=== PATIENT | female | born 1950 | race Caucasian/White ===

== ENCOUNTER 2017-06-19 15:31 | Emergency (ER) | payer MEDICARE, MEDICAID ==
[~2017-06-19 15:31] MED LIST: AMBI10TA PO; ASPI81TA82 PO; BENZ1TAB PO; CHLO.12%30 SSP; CIPR500T4 PO; CITA20 PO; CLIN1CAP6 PO; DUONI INH; HALO10 PO; ISOS60TA PO; KCL20 PO; LORTA5 PO; NITR0.4S SL; QUET1TAB65 PO
[2017-06-19 15:40] VITALS: BP 114/83; PULSE 103; RESP 18; TEMP 98.3; O2SAT 98
--- NOTE | 2017-06-19 16:37 | PD ---
HPI Chief Complaint: Altered Mental Status Time Seen by Provider: 16:03 Travel History International Travel<30 days: No Contact w/Intl Traveler<30days: No Traveled to known affect area: No History of Present Illness HPI 67-year-old female presents to the emergency department with her daughter at bedside for evaluation of intermittent confusion that started on Friday according to the daughter. The patient's history of paranoid schizophrenia. Her daughter states that she lives nearby and will get her medications ready for her. However, her medications were in disarray today and it appears that she has not been taking them as prescribed. Her daughter states that she has had intermittent confusion since Friday night. The patient states that she tripped and fell twice yesterday going to the bathroom. She does report urinary frequency. The patient is adamant that she tripped and fell. She denies any syncope or dizziness. She denies hitting her head or any LOC. The patient denies any pain. No neck or back pain. No chest pain or abdominal pain. No nausea, vomiting, diarrhea. Patient does have ecchymosis to the right foot. Patient's daughter states that was not there last night, and apparently was injured in one of her falls. Her daughter states that she complains of pain with ambulation. The patient answers my questions appropriately. She is alert and oriented to person, place, time for me. She follows all commands appropriately. No exacerbating or alleviating factors. Moderate severity. Her daughter states the last time she had these symptoms, she was diagnosed with a urinary tract infection. PFSH Past Medical History Arthritis: Yes Asthma: No Blood Disorders: No Anxiety: Yes Depression: Yes Heart Rhythm Problems: No Cancer: No Cardiovascular Problems: Yes High Cholesterol: Yes Chemotherapy: No Chest Pain: Yes Congestive Heart Failure: No COPD: No Cerebrovascular Accident: No Diabetes: Yes (PT NONCOMPLIANT) Diminished Hearing: No Endocrine: No GERD: No Glaucoma: No Headaches: Yes Hepatitis: No Hiatal Hernia: No Hypertension: Yes Immune Disorder: No Kidney Stones: No Musculoskeletal: Yes Psychiatric: Yes (SCHIZOPHRENIA,PARANOIA) Respiratory: Yes Migraines: No Myocardial Infarction: No Radiation Therapy: No Renal Failure: No Schizophrenia: Yes (PARANOID) Seizures: No Sickle Cell Disease: No Sleep Apnea: No Thyroid Disease: No Ulcer: No Menopausal: Yes : 2 Para: 2 Miscarriage: 0 : 0 Past Surgical History Abdominal Surgery: No AICD: No Appendectomy: No Arteriovenous Shunt: No Cardiac Surgery: No Cholecystectomy: No Ear Surgery: No Endocrine Surgery: No Eye Surgery: No Genitourinary Surgery: No Gynecologic Surgery: No Insulin Pump: No Joint Replacement: No Oral Surgery: No Pacemaker: No Thoracic Surgery: No Other Surgery: Yes (CERVICAL WARTS REMOVED) Social History Alcohol Use: No (Denies) Tobacco Use: Yes (1/2 PPD) Substance Use: No Allergies-Medications (Allergen,Severity, Reaction): Coded Allergies: penicillin G (Unverified Allergy, Severe, 06/19/17) Per pt. *MDRO Multi-Drug Resistant Organism (Verified Adverse Reaction, Unknown, ) ESBL+ E. coli in urine 11/2014. Reported Meds & Prescriptions Reported Meds & Active Scripts Active Cipro (Ciprofloxacin HCl) 500 Mg Tab 500 Mg PO BID 5 Days [place] 5/325 (Hydrocodone/Acetaminophen 5/325) Acetaminophen 325/5 Hydrocodone Tab 1 Tab PO Q6H PRN Clindamycin Hcl (Clindamycin HCl) 300 Mg Cap 300 Mg PO Q8 PRN Kcl 20 Meq Tab (Potassium Chloride) 20 Meq Tabcr 40 Meq PO DAILY Chlorhexidine Gluconate 30 Ml Soln 15 Ml SSP TID 30 Days Resp: Albuterol/Ipratropium 2.5 Mg/0.5 Mg (Albuterol/Ipratropium) 1 Amp Nebu 1 Amp INH Q6-RT PRN Seroquel (Quetiapine Fumarate) 200 Mg Tab 400 Mg PO BID Reported Nitrostat (Nitroglycerin) 0.4 Mg Subl 0.4 Mg SL PRN 1 TAB SL EVERY 5 MINS X 3 PRN CHEST PAIN Aspir-81 (Aspirin) 81 Mg Tab 81 Mg PO DAILY Celexa 20 Mg Tab (Citalopram Hydrobromide) 20 Mg Tab 20 Mg PO DAILY Isosorbide Mononitrate Er (Isosorbide Mononitrate) 60 Mg Tab 60 Mg PO DAILY Ambien (Zolpidem Tartrate) 10 Mg Tab 10 Mg PO HS Cogentin (Benztropine Mesylate) 2 Mg Tab 2 Mg PO BID Haldol (Haloperidol) 10 Mg Tab 10 Mg PO BID Review of Systems Except as stated in HPI: all other systems reviewed are Neg Physical Exam Narrative GENERAL: Well-nourished, well-developed female patient, afebrile. Patient is alert and oriented to person, place, time. SKIN: Focused skin assessment warm/dry. Ecchymosis noted to right dorsal foot. HEAD: Normocephalic. Atraumatic. ENT: Mucosa pink and moist. No erythema or exudates. No uvular edema. No uvular , palatal, or tonsillar deviation. Airway patent. Nasal turbinates appear normal without nasal blood, purulent drainage or septal hematoma. Bilateral tympanic membranes are clear without erythema or perforation. EYES: No scleral icterus. No injection or drainage. PERRLA. EOM intact. NECK: Supple, trachea midline. No JVD or lymphadenopathy. CARDIOVASCULAR: Regular rate and rhythm without murmurs, gallops, or rubs. Bilateral radial and pedal pulses are 2+. RESPIRATORY: Breath sounds equal bilaterally. No accessory muscle use. Lungs sounds are clear to auscultation. GASTROINTESTINAL: Abdomen soft, non-tender, nondistended. No abdominal tenderness to palpation. MUSCULOSKELETAL: No cyanosis, or edema. Bilateral upper and lower extremity strength 5/5. All extremities are neurovascularly intact. BACK: Nontender without obvious deformity. No CVA tenderness. No midline spinal tenderness. She has full range of motion of cervical spine without pain or stiffness. NEUROLOGICAL: Awake and alert. Cranial nerves II through XII intact. Motor and sensory grossly within normal limits. Five out of 5 muscle strength in all muscle groups. Normal speech. Finger to nose is normal bilaterally. Heel-to- barnes is normal bilaterally. Data Data Last Documented VS Vital Signs Date Time Temp Pulse Resp B/P (MAP) Pulse Ox O2 Delivery O2 Flow Rate FiO2 06/19/17 17:24 96 Room Air 06/19/17 15:44 20 06/19/17 15:40 98.3 103 114/83 (93) Orders Orders Electrocardiogram (06/19/17 16:34) Ammonia (06/19/17 16:34) Complete Blood Count With Diff (06/19/17 16:34) Comprehensive Metabolic Panel (06/19/17 16:34) Creatine Kinase (Cpk) (06/19/17 16:34) Prothrombin Time / Inr (Pt) (06/19/17 16:34) Act Partial Throm Time (Ptt) (06/19/17 16:34) Troponin I (06/19/17 16:34) Thyroid Stimulating Hormone (06/19/17 16:34) Urinalysis - C+S If Indicated (06/19/17 16:34) Ct Brain W/O Iv Contrast(Rout) (06/19/17 16:34) Blood Glucose (06/19/17 16:34) Ecg Monitoring (06/19/17 16:34) Iv Access Insert/Monitor (06/19/17 16:34) Oximetry (06/19/17 16:34) Sodium Chloride 0.9% Flush (Ns Flush) (06/19/17 16:45) Drug Screen, Random Urine (06/19/17 16:34) Alcohol (Ethanol) (06/19/17 16:34) Tylenol (Acetaminophen) (06/19/17 16:34) Salicylates (Aspirin) (06/19/17 16:34) Foot, Complete (Vua3ogd) (06/19/17 ) Urine Culture (06/19/17 17:00) CKMB (06/19/17 16:40) CKMB% (06/19/17 16:40) Ceftriaxone Inj (Rocephin Inj) (06/19/17 18:30) Ns (Bolus) Inj (06/19/17 18:30) Splint Or Brace Apply/Monitor (06/19/17 18:20) Labs Laboratory Tests Test 06/19/17 16:40 06/19/17 17:00 White Blood Count 12.4 TH/MM3 Red Blood Count 4.40 MIL/MM3 Hemoglobin 12.4 GM/DL Hematocrit 37.0 % Mean Corpuscular Volume 84.1 FL Mean Corpuscular Hemoglobin 28.1 PG Mean Corpuscular Hemoglobin Concent 33.4 % Red Cell Distribution Width 16.2 % Platelet Count 213 TH/MM3 Mean Platelet Volume 8.8 FL Neutrophils (%) (Auto) 58.8 % Lymphocytes (%) (Auto) 31.2 % Monocytes (%) (Auto) 7.5 % Eosinophils (%) (Auto) 2.0 % Basophils (%) (Auto) 0.5 % Neutrophils # (Auto) 7.3 TH/MM3 Lymphocytes # (Auto) 3.9 TH/MM3 Monocytes # (Auto) 0.9 TH/MM3 Eosinophils # (Auto) 0.2 TH/MM3 Basophils # (Auto) 0.1 TH/MM3 CBC Comment DIFF FINAL Differential Comment Prothrombin Time 11.4 SEC Prothromb Time International Ratio 1.1 RATIO Activated Partial Thromboplast Time 27.1 SEC Blood Urea Nitrogen 10 MG/DL Creatinine 0.70 MG/DL Random Glucose 110 MG/DL Total Protein 7.2 GM/DL Albumin 3.9 GM/DL Calcium Level 8.8 MG/DL Alkaline Phosphatase 74 U/L Aspartate Amino Transf (AST/SGOT) 24 U/L Alanine Aminotransferase (ALT/SGPT) 28 U/L Total Bilirubin 0.4 MG/DL Sodium Level 140 MEQ/L Potassium Level 3.6 MEQ/L Chloride Level 107 MEQ/L Carbon Dioxide Level 26.1 MEQ/L Anion Gap 7 MEQ/L Estimat Glomerular Filtration Rate 84 ML/MIN Ammonia 34 MCMOL/L Total Creatine Kinase 418 U/L Creatine Kinase MB 6.3 NG/ML Creatine Kinase MB % 1.5 % Troponin I LESS THAN 0.02 NG/ML Thyroid Stimulating Hormone 3rd Gen 0.617 uIU/ML Salicylates Level 5.7 MG/DL Acetaminophen Level LESS THAN 2.0 MCG/ML Ethyl Alcohol Level LESS THAN 3 MG/DL Urine Color YELLOW Urine Turbidity CLOUDY Urine pH 6.5 Urine Specific [place] 1.013 Urine Protein TRACE mg/dL Urine Glucose (UA) NEG mg/dL Urine Ketones NEG mg/dL Urine Occult Blood SMALL Urine Nitrite POS Urine Bilirubin NEG Urine Urobilinogen LESS THAN 2.0 MG/DL Urine Leukocyte Esterase LARGE Urine RBC 22 /hpf Urine WBC /hpf Urine WBC Clumps MANY Urine Squamous Epithelial Cells 19 /hpf Urine Bacteria MANY /hpf Urine Mucus FEW /lpf Microscopic Urinalysis Comment CATH-CULTURE IND [facility] Medical Decision Making Medical Screen Exam Complete: Yes Emergency Medical Condition: Yes Medical Record Reviewed: Yes Interpretation(s) Last Impressions Head CT 06/19/17 1634 Signed Impressions: Service Date/Time: June 17:48 - CONCLUSION: Normal examination. Tarik Garcia MD Foot X-Ray 06/19/17 0000 Signed Impressions: Service Date/Time: June 16:46 - CONCLUSION: Fourth metatarsal head fracture.. Tarik Garcia MD Differential Diagnosis UTI versus electrolyte abnormality versus dehydration versus intracranial abnormality versus medication noncompliance Narrative Course 67-year-old female presents to the emergency department for evaluation of altered mental status, fall 2 last night. She does appear well on my exam and answers all my questions appropriately. EKG, CBC, CMP, ammonia level, CK, troponin, TSH, UA, Ammonia level, UDS, alcohol level, Tylenol level, Salicylate level are ordered and pending. CT of the brain and x-ray of the right foot are ordered and pending. EKG shows sinus tachycardia, heart rate 105, no acute ST changes. CBC shows leukocytosis 12.4. CMP shows no acute abnormality. Ammonia level is 34. TSH is 0.617. CK is 418. Troponin is less than 0.02. UDS is pending. UA shows positive nitrate, large leukocyte esterase, innumerable WBC, many wbc clumps. Salicylate level is 5.7. Tylenol level is less than 2.0. CT of the brain is normal. X-ray of the right foot shows a fourth metatarsal head fracture. I discussed findings with the patient her daughter. The daughter states that she feels comfortable taking her home. Patient is alert and oriented to person , place, time and neuro exam is unremarkable. Patient is given Rocephin 1 g IV , normal saline 1 L IV fluid. Patient states no posterior short leg splint to the right foot. She'll be given a prescription for a walker. She'll be discharged prescription for Keflex for UTI. Her daughter verbalizes agreement and her state. She is return here for any acute worsening of symptoms. I discussed the case attending physician, Dr. Patino, who agrees with plan and disposition. Diagnosis Primary Impression: Urinary tract infection Qualified Codes: N30.01 - Acute cystitis with hematuria Additional Impression: Metatarsal bone fracture Qualified Codes: S92.344A - Nondisplaced fracture of fourth metatarsal bone, right foot, initial encounter for closed fracture Referrals: [employer] call for appointment Primary Care Physician call for appointment Patient Instructions: Foot Fracture in Adults (ED), General Instructions, Urinary Tract Infection in Women (ED) Additional Instructions: Take antibiotic as directed until gone for UTI. Follow-up with aperture mask etcher for foot fracture. Follow-up with your primary care physician. Return to the emergency department for any acute worsening of symptoms. Med/Other Pt SpecificInfo: Prescription(s) given Scripts Walker/Adult/Folding (Walker/Adult/Folding) 1 Mis Mis EA .XX DIRECTED, #1 0 Refills Prov: Thais Sawant 06/19/17 Cephalexin (Keflex) 500 Mg Capsule 500 MG PO Q8H for Infection for 7 Days, #21 CAP 0 Refills Prov: Thais Sawant 06/19/17 Disposition: 01 DISCHARGE HOME Condition: Stable Thais Sawant Jun 19, 2017 16:37
[2017-06-19] MEDS ORDERED: SODIUM CHLORIDE 0.9% FLUSH 10 ML FLUSH IV FLUSH PRN (16:45)
--- NOTE | 2017-06-19 17:05 | RADRPT ---
EXAM DATE/TIME: 06/19/2017 16:46 [facility] COMPARISON: No previous studies available for comparison. INDICATIONS : Pain in foot. MEDICAL HISTORY : None. SURGICAL HISTORY : None. ENCOUNTER: Initial ACUITY: 1 day PAIN SCORE: 3/10 LOCATION: Right foot, 3-5 MTPJ FINDINGS: Three view examination of the right foot demonstrates a small fracture from the lateral aspect of the fourth metatarsal head. The tarsal bones appear intact. The interphalangeal and metatarsophalange al joints are intact. The calcaneus is intact. Bony mineralization is normal. CONCLUSION: Fourth metatarsal head fracture.. Tarik Garcia MD on June 19, 2017 at 17:03 Board Certified Radiologist. This report was verified electronically.
[2017-06-19 17:11] LABS: AUTOMATED NEUTROPHIL # 7.3 TH/MM3 (1.8-7.7); BASOPHIL # 0.1 TH/MM3 (0-0.2); BASOPHIL % 0.5 % (0.0-2.0); EOSINOPHIL # 0.2 TH/MM3 (0-0.4); HEMOGLOBIN 12.4 GM/DL (11.6-15.3); LYMPH % 31.2 % (9.0-44.0); LYMPHOCYTE # 3.9 TH/MM3 (1.0-4.8); MEAN CELL VOLUME 84.1 FL (80.0-100.0); MEAN CORPUSCULAR HEMOGLOBIN 28.1 PG (27.0-34.0); MEAN CORPUSCULAR HGB CONC 33.4 % (32.0-36.0); MEAN PLATELET VOLUME 8.8 FL (7.0-11.0); MONO % 7.5 % (0.0-8.0); MONOCYTE # 0.9 TH/MM3 (0-0.9); NEUT % 58.8 % (16.0-70.0); PLATELET COUNT 213 TH/MM3 (150-450); RED CELL DISTRIBUTION WIDTH 16.2 % (11.6-17.2); WHITE BLOOD COUNT 12.4 TH/MM3 (4.0-11.0)
[2017-06-19 17:17] LABS: INTERNATIONAL NORMALIZED RATIO 1.1 RATIO; PROTHROMBIN TIME - PATIENT 11.4 SEC (9.8-11.6)
[2017-06-19 17:22] LABS: ALBUMIN 3.9 GM/DL (3.4-5.0); ALT (GPT) 28 U/L (10-53); AST (GOT) 24 U/L (15-37); BICARBONATE 26.1 MEQ/L (21.0-32.0); BLOOD UREA NITROGEN 10 MG/DL (7-18); CALCIUM 8.8 MG/DL (8.5-10.1); CHLORIDE 107 MEQ/L (98-107); GLOMERULAR FILTRATION RATE 84 ML/MIN (>89); GLUCOSE,RANDOM 110 MG/DL (74-106); SODIUM (NA) 140 MEQ/L (136-145)
[2017-06-19 17:24] VITALS: O2SAT 96
[2017-06-19 17:27] LABS: BACTERIA, URINE MANY /hpf; BILIRUBIN, URINE NEG (NEG); BLOOD, URINE SMALL (NEG); GLUCOSE,URINE NEG (NEG); KETONE, URINE NEG (NEG); MUCUS URINE FEW /lpf (OCC); NITRITE,URINE POS (NEG); PH, URINE 6.5 (5.0-8.5); SQUAMOUS EPITHELIAL CELL URINE 19 /hpf (0-5); URINE COLOR YELLOW (YELLW/STRAW); URINE LEUKOCYTE ESTERASE LARGE (NEG); WHITE BLOOD CELL CLUMPS MANY
[2017-06-19 17:32] LABS: ACETAMINOPHEN LESS THAN 2.0 MCG/ML (10.0-30.0); ALKALINE PHOSPHATASE 74 U/L (45-117); TOTAL BILIRUBIN ADULT 0.4 MG/DL (0.2-1.0); TOTAL PROTEIN 7.2 GM/DL (6.4-8.2); TROPONIN I LESS THAN 0.02 NG/ML (0.02-0.05)
--- NOTE | 2017-06-19 17:58 | RADRPT ---
EXAM DATE/TIME: 06/19/2017 17:48 [facility] COMPARISON: CT BRAIN W/O CONTRAST, December 19, 2014, 18:34. INDICATIONS : Frequent falls with altered mental status. RADIATION DOSE: 56.35 CTDIvol (mGy) MEDICAL HISTORY : Cardiovascular disease. Hypertension. Schizophrenia SURGICAL HISTORY : ENCOUNTER: Initial ACUITY: 1 day PAIN SCALE: 0/10 LOCATION: cranial TECHNIQUE: Multiple contiguous axial images were obtained of the head. Using automated exposure control and adj ustment of the mA and/or kV according to patient size, radiation dose was kept as low as reasonably a chievable to obtain optimal diagnostic quality images. DICOM format image data is available electro nically for review and comparison. FINDINGS: CEREBRUM: The ventricles are normal for age. No evidence of midline shift, mass lesion, hemorrhage or acute in farction. No extra-axial fluid collections are seen. POSTERIOR FOSSA: The cerebellum and brainstem are intact. The 4th ventricle is midline. The cerebellopontine angle i s unremarkable. EXTRACRANIAL: The visualized portion of the orbits is intact. SKULL: The calvaria is intact. No evidence of skull fracture. CONCLUSION: Normal examination. Tarik Garcia MD on June 19, 2017 at 17:56 Board Certified Radiologist. This report was verified electronically.
[2017-06-19] MEDS ORDERED: CEPH-460 PO (18:27)
[2017-06-19] MEDS ORDERED: WALKER/ADULT/FO1 MIS (18:28)
[2017-06-19] MEDS ORDERED: SODIUM CHLOR 0.9% 1000 ML INJ 1,000 ML IV ONE (18:30)
[2017-06-19] MEDS ORDERED: cefTRIAXone INJ 1,000 MG in SODIUM CHLORIDE 0.9% INJ 100 ML IV ONE (18:30)
--- NOTE | 2017-06-20 08:58 | EKG ---
Date Performed: 06/19/2017 Time Performed: 17:42:45 PTAGE: 67 years EKG: SINUS TACHYCARDIA WITH OCCASIONAL SUPRAVENTRICULAR PREMATURE COMPLEXES NONSPECIFIC T-WAVE A BNORMALITY ABNORMAL RHYTHM ECG PREVIOUS TRACING : 10/15/2013 10.33 Since the prior tracing, there has been no significant de jesus DOCTOR: Romelia Warner Interpretating Date/Time 06/20/2017 08:55:18
== END 2017-06-19 20:30 | disposition home or self-care (01) ==
LOC: NEPC 15:31
DX: N30.01 Acute cystitis with hematuria (principal); S92.344A Nondisplaced fracture of fourth metatarsal bone, right foot, initial encounter for closed fracture; F17.200 Nicotine dependence, unspecified, uncomplicated; F20.0 Paranoid schizophrenia; I10 Essential (primary) hypertension; R00.0 Tachycardia, unspecified; W01.0XXA Fall on same level from slipping, tripping and stumbling without subsequent striking against object, initial encounter; Z79.899 Other long term (current) drug therapy
CPT/HCPCS: 70450; 73630; 80053; 80307; 81001; 82140; 82550; 82552; 84443; 84484; 85025; 85610; 85730; 87077; 87086; 87186; 93005; 96374; 99285; J0696; J7030

== ENCOUNTER 2018-06-06 16:13 | Inpatient (IN) ==
--- NOTE | 2018-06-06 16:30 | ED ---
HPI General Chief Complaint: Shortness of Breath/Dyspnea Stated Complaint: Respitory Time Seen by Provider: 06/06/18 16:18 Source: patient and EMS Mode of arrival: EMS Limitations: other (cpap and clinical acuity) History of Present Illness 68-year-old female presents by ambulance for shortness of breath. When they arrived on scene her oxygen saturation was in the 90s on room air. With CPAP they were able to get her up into the low 90s. They gave her Solu-Medrol and one breathing treatment to see if that would help although she has no history of respiratory disease. They report that she has history of high blood pressure but no known history of CHF. Patient confirms shortness of breath but is having difficulty talking through the BiPAP mask so history is limited. Related Data Home Medications Medication Instructions Recorded Confirmed atorvastatin 80 mg PO DAILY 12/12/17 06/06/18 quetiapine [Seroquel XR] 400 mg PO QPM 12/12/17 06/06/18 Allergies Allergy/AdvReac Type Severity Reaction Status Date / Time penicillin G Allergy Severe Hives Verified 12/12/17 17:36 Review of Systems ROS Unobtainable ROS Unobtainable: other (bipap) [facility] Medical History Medical History High cholesterol (Acute) Hx of abscess of skin and subcutaneous tissue (Acute) Schizophrenia (Acute) Social History Social History Substance History: No History of Abuse Second Hand Smoke Exposure: No Smoking Status: Current every day smoker Tobacco Type: Cigarettes How Often Do You Have a Drink Containing Alcohol: Never Recent Travel in [facility] within the Last 8 Weeks: No Recent Out of Country Travel within the Last 8 Weeks: No Immunization History Tetanus Immunization: Unsure Exam Narrative Exam Narrative: GENERAL: 68-year-old female in no apparent distress SKIN: Focused skin assessment warm/dry. HEAD: Atraumatic. Normocephalic. EYES: Pupils equal and round. No scleral icterus. No injection or drainage. ENT: No nasal bleeding or discharge. Mucous membranes pink and moist. NECK: Trachea midline. No JVD. CARDIOVASCULAR: Regular rate and rhythm. No murmur appreciated. RESPIRATORY: Coarse bilaterally, tachypnea noted GASTROINTESTINAL: Abdomen soft, nondistended. MUSCULOSKELETAL: No obvious deformities. No clubbing. No cyanosis. NEUROLOGICAL: Eyes open, moves all extremities, speech limited with BiPAP Course Reevaluation(s) Reevaluation #1: On reevaluation she has improved in terms of her rest Cale rate and states she is feeling better. She was given broad-spectrum IV antibiotic given leukocytosis and initial chest x-ray but has more CHF type appearance. BNP is only elevated in the 300 range but this could be more of the flash pulmonary edema and she will need an echocardiogram for confirmation. She agrees to admission for further care Consultations Consultation #1: dr back agrees to admit, requests cta pulmonary Initial Documented Vital Signs Temperature 98.2 F 06/06/18 16:17 Pulse Rate 110 H 06/06/18 16:17 Respiratory Rate 42 H 06/06/18 16:17 Blood Pressure 143/97 H 06/06/18 16:17 Pulse Oximetry 96 06/06/18 16:17 Last Documented Vital Signs Temperature 98.2 F 06/06/18 16:17 Pulse Rate 110 H 06/06/18 16:17 Respiratory Rate 42 H 06/06/18 16:17 Blood Pressure 143/97 H 06/06/18 16:17 Pulse Oximetry 97 06/06/18 16:45 Critical Care Time Critical Care Time: Yes Total Critical Care Time: 35 Attestation: Aggregate critical care time was 35 minutes. Time to perform other separately billable procedures was not included in the critical care time. My time did not include minutes spent treating any other patients simultaneously or on activities that did not directly contribute to the patient's treatment. The services I provided to this patient were to treat and/or prevent clinically significant deterioration that could result in: Respiratory failure, I provided critical care services requiring my management, as noted below: Chart data review, documentation time, medication orders and management, vital sign assessments/reviewing monitor data, ordering and reviewing lab tests, ordering and interpreting/reviewing x-rays and diagnostic studies, care of the patient and discussion of the patient with the admitting physicians. Medical Decision Making MDM Narrative Medical decision making narrative: We will check blood work, chest x-ray, EKG, ABG and patient will need admission. If does not improve on BiPAP may need intubation Medical Screen Exam Complete: Yes Emergency Medical Condition: Yes Differential Diagnosis Differential Diagnosis: CHF, COPD, anemia, renal failure, pneumonia Lab Data Lab results reviewed: Yes I reviewed the patient's lab results. Result diagrams: 06/06/18 16:25 06/06/18 16:25 Lab Results 06/06/18 06/06/18 06/06/18 Range/Units 16:16 16:25 16:25 WBC 15.2 H (4.0-11.0) th/mm3 RBC 4.70 (4.00-5.30) mil/mm3 Hgb 12.9 (11.6-15.3) gm/dL Hct 39.9 (35.0-46.0) % MCV 84.7 (80.0-100.0) fL MCH 27.4 (27.0-34.0) pg MCHC 32.4 (32.0-36.0) % RDW 17.3 H (11.6-17.2) % Plt Count 230 (150-450) th/mm3 MPV 9.2 (7.0-11.0) fL Neut % (Auto) 79.9 H (16.0-70.0) % Lymph % (Auto) 16.7 (9.0-44.0) % Becker % (Auto) 1.5 (0.0-8.0) % Eos % (Auto) 1.5 (0.0-4.0) % Baso % (Auto) 0.4 (0.0-2.0) % Neut # (Auto) 12.1 H (1.8-7.7) th/mm3 Lymph # (Auto) 2.5 (1.0-4.8) th/mm3 Becker # (Auto) 0.2 (0.0-0.9) th/mm3 Eos # (Auto) 0.2 (0.0-0.4) th/mm3 Baso # (Auto) 0.1 (0.0-0.2) th/mm3 WBC Differential . Differential Comment Auto diff final PT 11.4 (9.8-11.6) sec INR 1.1 Ratio APTT 23.7 (23.4-31.7) sec Puncture Site Left radial Patient Temperature 98.6 O2 Saturation 92 (90-100) % ABG pH 7.33 L (7.380-7.420) ABG pCO2 40 (38-42) mmHg ABG pO2 81 (61-120) mmHg ABG HCO3 21 L (22-26) mmol/L ABG O2 Content 16.0 (12.0-20.0) Vol % ABG Base Excess -4.0 L (-2-2) mmol/L ABG Methemoglobin 0.6 (0-2) % Alejandro Test Present Hemoglobin 12.2 (12.0-16.0) G/DL Carboxyhemoglobin 1.5 (0-4) % O2 Delivery Device Bipap Vent Setting Ipap 15/epap 5 Inspired O2 60 % Critical Value No Sodium (136-145) meq/L Potassium (3.5-5.1) meq/L Chloride (98-107) meq/L Carbon Dioxide (21.0-32.0) meq/L Anion Gap (5-15) meq/L BUN (7-18) mg/dL Creatinine (0.50-1.00) mg/dL Estimated GFR (>89) mL/min Random Glucose (74-106) mg/dL Lactic Acid (0.4-2.0) mmol/L Calcium (8.5-10.1) mg/dL Magnesium (1.5-2.5) mg/dL Total Bilirubin (0.2-1.0) mg/dL AST (15-37) U/L ALT (10-53) U/L Alkaline Phosphatase (45-117) U/L Total Creatine Kinase (26-192) U/L CK-MB (CK-2) (0.5-3.6) ng/mL CK-MB (CK-2) % (0.0-4.0) % Troponin I (0.02-0.05) ng/mL B-Natriuretic Peptide (0-100) pg/mL Total Protein (6.4-8.2) g/dL Albumin (3.4-5.0) g/dL 06/06/18 06/06/18 06/06/18 Range/Units 16:25 16:25 16:25 WBC (4.0-11.0) th/mm3 RBC (4.00-5.30) mil/mm3 Hgb (11.6-15.3) gm/dL Hct (35.0-46.0) % MCV (80.0-100.0) fL MCH (27.0-34.0) pg MCHC (32.0-36.0) % RDW (11.6-17.2) % Plt Count (150-450) th/mm3 MPV (7.0-11.0) fL Neut % (Auto) (16.0-70.0) % Lymph % (Auto) (9.0-44.0) % Becker % (Auto) (0.0-8.0) % Eos % (Auto) (0.0-4.0) % Baso % (Auto) (0.0-2.0) % Neut # (Auto) (1.8-7.7) th/mm3 Lymph # (Auto) (1.0-4.8) th/mm3 Becker # (Auto) (0.0-0.9) th/mm3 Eos # (Auto) (0.0-0.4) th/mm3 Baso # (Auto) (0.0-0.2) th/mm3 WBC Differential Differential Comment PT (9.8-11.6) sec INR Ratio APTT (23.4-31.7) sec Puncture Site Patient Temperature O2 Saturation (90-100) % ABG pH (7.380-7.420) ABG pCO2 (38-42) mmHg ABG pO2 (61-120) mmHg ABG HCO3 (22-26) mmol/L ABG O2 Content (12.0-20.0) Vol % ABG Base Excess (-2-2) mmol/L ABG Methemoglobin (0-2) % Alejandro Test Hemoglobin (12.0-16.0) G/DL Carboxyhemoglobin (0-4) % O2 Delivery Device Vent Setting Inspired O2 % Critical Value Sodium 140 (136-145) meq/L Potassium 3.9 (3.5-5.1) meq/L Chloride 110 H (98-107) meq/L Carbon Dioxide 21.8 (21.0-32.0) meq/L Anion Gap 8 (5-15) meq/L BUN 10 (7-18) mg/dL Creatinine 0.76 (0.50-1.00) mg/dL Estimated GFR 76 L (>89) mL/min Random Glucose 320 H (74-106) mg/dL Lactic Acid 1.7 (0.4-2.0) mmol/L Calcium 8.0 L (8.5-10.1) mg/dL Magnesium 2.1 (1.5-2.5) mg/dL Total Bilirubin 0.3 (0.2-1.0) mg/dL AST 41 H (15-37) U/L ALT 61 H (10-53) U/L Alkaline Phosphatase 70 (45-117) U/L Total Creatine Kinase 294 H (26-192) U/L CK-MB (CK-2) 10.7 H (0.5-3.6) ng/mL CK-MB (CK-2) % 3.6 (0.0-4.0) % Troponin I 0.03 (0.02-0.05) ng/mL B-Natriuretic Peptide 312 H (0-100) pg/mL Total Protein 6.9 (6.4-8.2) g/dL Albumin 3.2 L (3.4-5.0) g/dL Imaging Data Attestation: I personally reviewed and interpreted this imaging study as follows : Radiologist's impression: Chest X-Ray 06/06/18 16:18 CONCLUSION: Interstitial and alveolar infiltrates bilaterally. Discharge Plan Discharge Disposition Patient Disposition: ED Admit(ED Internal Use Only) Discharge Order Discharge Orders: ED Use Only Admit Order (Routine); Ordered 06/06/18 Ordered By: Yesenia Richards Discharge Details Diagnosis: Respiratory failure Physicians Team ED Provider: Yesenia Richards Primary Care Provider: Emmett Funez Rxs /Orders / Referrals /Forms Prescriptions: No Action atorvastatin 80 mg Tablet 80 mg PO DAILY RF: 0 quetiapine [Seroquel XR] 400 mg Tablet Extended Release 24 Hr 400 mg PO QPM RF: 0 Status ED Status: Admitted Patient
[2018-06-06 16:40] LABS: ABG PCO2 40 mmHg (38-42); ABG PO2 81 mmHg (61-120)
[2018-06-06 16:41] LABS: Baso # (Auto) 0.1 th/mm3 (0.0-0.2); Baso % (Auto) 0.4 % (0.0-2.0); Eos # (Auto) 0.2 th/mm3 (0.0-0.4); Eos % (Auto) 1.5 % (0.0-4.0); Hematocrit 39.9 % (35.0-46.0); Hemoglobin 12.9 gm/dL (11.6-15.3); Lymph # (Auto) 2.5 th/mm3 (1.0-4.8); Lymph % (Auto) 16.7 % (9.0-44.0); Mean Corpuscular HGB Conc 32.4 % (32.0-36.0); Mean Corpuscular Hemoglobin 27.4 pg (27.0-34.0); Mean Corpuscular Volume 84.7 fL (80.0-100.0); Mean Platelet Volume 9.2 fL (7.0-11.0); Mono # (Auto) 0.2 th/mm3 (0.0-0.9); Mono % (Auto) 1.5 % (0.0-8.0); Neut # (Auto) 12.1 th/mm3 (1.8-7.7); Neut % (Auto) 79.9 % (16.0-70.0); Platelet Count 230 th/mm3 (150-450); Red Cell Distribution Width 17.3 % (11.6-17.2); White Blood Count 15.2 th/mm3 (4.0-11.0)
[2018-06-06] MEDS ORDERED: Aztreonam Inj 2 GM in Sodium Chloride 0.9% Inj 100 ML IV.SIG STA (16:44)
--- NOTE | 2018-06-06 16:45 | XR ---
EXAM DATE: 06/06/2018 4:40 PM EST AGE/SEX: 68 years / Female INDICATIONS: Shortness of breath. CLINICAL DATA: This is the patient's initial encounter. Patient reports that signs and symptoms have been present for 1 day and indicates a pain score of 0/10. MEDICAL/SURGICAL HISTORY: Cardiovascular disease. Hypertension. None. COMPARISON: [facility], XR CHEST PA AND LAT, 01/29/2018. . FINDINGS: A single AP view of the chest demonstrates hyperinflation and diffuse bilateral interstitial and bila teral alveolar patchy opacities. The cardiomediastinal contours are unremarkable. Osseous structures are intact. CONCLUSION: Interstitial and alveolar infiltrates bilaterally. Electronically signed by: Saeed Whitley MD Board Certified Radiologist 06/06/2018 4:44 PM EST
[2018-06-06 16:52] LABS: Activated Partial Thrombo Time 23.7 sec (23.4-31.7); INR 1.1 Ratio; Prothrombin Time 11.4 sec (9.8-11.6)
[2018-06-06 17:14] LABS: Alanine Aminotransferase 61 U/L (10-53); Alkaline Phosphatase 70 U/L (45-117); Creatine Kinase 294 U/L (26-192); Total Protein 6.9 g/dL (6.4-8.2); Troponin I 0.03 ng/mL (0.02-0.05)
[2018-06-06 17:15] LABS: Albumin 3.2 g/dL (3.4-5.0); Anion Gap 8 meq/L (5-15); Aspartate Aminotransferase 41 U/L (15-37); Blood Urea Nitrogen 10 mg/dL (7-18); Carbon Dioxide 21.8 meq/L (21.0-32.0); Chloride 110 meq/L (98-107); Glomerular Filtration Rate 76 mL/min (>89); Glucose,Random 320 mg/dL (74-106); Magnesium 2.1 mg/dL (1.5-2.5); Potassium 3.9 meq/L (3.5-5.1); Sodium 140 meq/L (136-145)
[2018-06-06 17:27] LABS: CKMB Percent 3.6 % (0.0-4.0); Creatine Kinase MB 10.7 ng/mL (0.5-3.6)
[2018-06-06] MEDS ORDERED: MethylPREDNISolone Sod Succinate Inj 125 MG/2 ML Vial IV.PUSH ONE (18:33)
--- NOTE | 2018-06-06 18:43 | P.HPIM ---
History of Present Illness Primary Care Physician: Emmett Funez MD History of Present Illness: 68-year-old female with a history of 50 years of smoking and chronic hypertension presents to the ER in respiratory failure with saturations down to 70%. She reports that yesterday she felt fine, early this morning she felt fine but that she began to develop a congested cough over approximately 4 hours that led to difficulty breathing and lightheadedness at home. She tried to get help from her neighbors but encouraged her to call 911, when she did EMS arrived and found her saturations were down to 70%. On arrival she managed to improve with BiPAP, her blood gases were not as durable as feared. She states she has been a smoker since her teens which raises the suspicion of a COPD exacerbation. She has chest x-ray that shows infiltrates and generalized opacities consistent with either infection or CHF. Her extremities are not edematous. Her history is limited by her muffled voice from the BiPAP machine. Inpatient Certification Inpatient Certification: I certify that the inpatient services were ordered in accordance with Medicare regulations governing the order. This includes certification that hospital inpatient services are reasonable and necessary and in the case of services not specified as inpatient-only under 42 CFR 419.22(n), that they are appropriately provided as inpatient services in accordance to with the 2-midnight benchmark under 43 CFR 412.3(e) Estimated Total Length of Stay (Days): 4 Plans for Post Hospital Care: Home Review of Systems Accurate review of systems is unobtainable due to muffled voice of the BiPAP, focus was on history. ROS Unobtainable: other [facility] Medical History Medical History High cholesterol (Acute) Hx of abscess of skin and subcutaneous tissue (Acute) Schizophrenia (Acute) Family History Family History Other Hypertension Social History Social History Substance History: No History of Abuse Second Hand Smoke Exposure: No Smoking Status: Current every day smoker Tobacco Type: Cigarettes How Often Do You Have a Drink Containing Alcohol: Never Recent Travel in [facility] within the Last 8 Weeks: No Recent Out of Country Travel within the Last 8 Weeks: No Immunization History Tetanus Immunization: Unsure Medications and Allergies Allergies Allergy/AdvReac Type Severity Reaction Status Date / Time penicillin G Allergy Severe Hives Verified 12/12/17 17:36 Home Medications Medication Instructions Recorded Confirmed Type atorvastatin 80 mg PO DAILY 12/12/17 06/06/18 History quetiapine [Seroquel XR] 400 mg PO QPM 12/12/17 06/06/18 History Active Medications: Active Medications Acetaminophen (Tylenol) 650 mg PO Q4H PRN PRN Reason: Temp > 100.4 Albuterol (Duoneb Neb (Tasha)) 1 ampul NEB Q4HR NEB TASHA Furosemide (Lasix Inj) 40 mg IV.PUSH BID@0900,1800 TASHA Heparin Sodium (Porcine) (Heparin Inj) 5,000 units SQ Q12H TASHA Methylprednisolone Sodium Succinate (Solumedrol Inj) 125 mg IV.PUSH ONCE ONE Stop: 06/06/18 18:34 Ondansetron HCl (Zofran Inj) 4 mg IV.PUSH Q6H PRN PRN Reason: NAUSEA OR VOMITING Sennosides (Senokot) 17.2 mg PO Q12H PRN PRN Reason: Moderate Constipation Sodium Chloride (Ns Flush) 2 ml IV.FLUSH BID TASHA Sodium Chloride (Ns Flush) 2 ml IV.FLUSH PRN PRN PRN Reason: FLUSH AFTER USING IV ACCESS Physical Exam Vital signs: Vital Signs 06/06/18 16:17 06/06/18 16:18 06/06/18 16:26 Temperature 98.2 F Pulse Rate 110 H Respiratory Rate 42 H Blood Pressure 143/97 H Pulse Oximetry 96 96 96 06/06/18 16:45 06/06/18 17:00 06/06/18 18:00 Temperature Pulse Rate 102 H 106 H Respiratory Rate 27 H 27 H Blood Pressure 123/96 H 128/86 Pulse Oximetry 97 99 100 Intake & Output 06/05/18 06/06/18 06/06/18 18:59 06:59 18:59 Weight 48.534 kg Narrative: GENERAL: AAOx3, no acute distress, thin SKIN: Warm and dry, no rashes. HEAD: Atraumatic. Normocephalic. EYES: Pupils left pupil 1 mm greater than right, old eye injury, round, reactive to light. No scleral icterus. No injection or drainage. ENT: No nasal bleeding or discharge. Moist mucous membranes. Nonerythematous oropharynx. NECK: Trachea midline. No JVD. Thyroid size within normal limits. CARDIOVASCULAR: Sinus tachycardia. No murmur, no gallops, no rubs. RESPIRATORY: Prominent congestion, rales, and poor air exchange throughout bilateral lungs GASTROINTESTINAL: Abdomen soft, non-tender, nondistended, normal active bowel sounds. Hepatic and splenic margins not palpable. MUSCULOSKELETAL: Extremities without clubbing or cyanosis. No obvious deformities. No edema. NEUROLOGICAL: Awake and alert. No obvious cranial nerve deficits. Motor grossly within normal limits. No focal deficits. Five out of 5 muscle strength in the arms and legs. Normal speech. PSYCHIATRIC: Appropriate mood and affect; insight and judgment normal. Results Labs CBC & Chem 7: 06/06/18 16:25 06/06/18 16:25 Imaging Impressions Chest X-Ray 06/06/18 16:18 CONCLUSION: Interstitial and alveolar infiltrates bilaterally. Caprini VTE Risk Assessment Caprini VTE Risk Assessment: Moderate/High Risk (score >= 2) Caprini Risk Assessment Model: Point Value = 1 Point Value = 2 Point Value = 3 Point Value = 5 Age 41-60 Minor surgery BMI > 25 kg/m2 Swollen legs Varicose veins or History of unexplained or recurrent spontaneous Oral contraceptives or hormone replacement Sepsis (< 1 month) Serious lung disease, including pneumonia (< 1 month) Abnormal pulmonary function Acute myocardial infarction Congestive heart failure (< 1 month) History of inflammatory bowel disease Medical patient at bed rest Age 61-74 Arthroscopic surgery Major open surgery (> 45 min) Laparoscopic surgery (> 45 min) Malignancy Confined to bed (> 72 hours) Immobilizing plaster cast Central venous access Age >= 75 History of VTE Family history of VTE Factor V Leiden Prothrombin [id number] Lupus anticoagulant Anticardiolipin antibodies Elevated serum homocysteine Heparin-induced thrombocytopenia Other congenital or acquired thrombophilia Stroke (< 1 month) Elective arthroplasty Hip, pelvis, or leg fracture Acute spinal cord injury (< 1 month) Prophylaxis Regimen: Total Risk Factor Score Risk Level Prophylaxis Regimen 0-1 Low Early ambulation 2 Moderate Order ONE of the following: *Sequential Compression Device (SCD) *Heparin 5000 units SQ BID 3-4 Higher Order ONE of the following medications: *Heparin 5000 units SQ TID *Enoxaparin/Lovenox 40 mg SQ daily (WT < 150 kg, CrCl > 30 mL/min) *Enoxaparin/Lovenox 30 mg SQ daily (WT < 150 kg, CrCl > 10-29 mL/min) *Enoxaparin/Lovenox 30 mg SQ BID (WT < 150 kg, CrCl > 30 mL/min) AND/OR *Sequential Compression Device (SCD) 5 or more Highest Order ONE of the following medications: *Heparin 5000 units SQ TID (Preferred with Epidurals) *Enoxaparin/Lovenox 40 mg SQ daily (WT < 150 kg, CrCl > 30 mL/min) *Enoxaparin/Lovenox 30 mg SQ daily (WT < 150 kg, CrCl > 10-29 mL/min) *Enoxaparin/Lovenox 30 mg SQ BID (WT < 150 kg, CrCl > 30 mL/min) AND *Sequential Compression Device (SCD) Assessment and Plan Plan Acute respiratory failure Differential includes CHF exacerbation, COPD exacerbation, pulmonary embolism CT angiogram is pending to rule out pulmonary embolism Chest x-ray is consistent with pneumonia versus CHF exacerbation, patient denies fevers, BNP 300s She has a 50-year smoking history, but onset was rapid and chest x-ray is more consistent with CHF At this point will treat for all 3 and follow clinically Admit to [facility] to continue BiPAP use h/o schizophrenia Continue Seroquel Hypertension Continue home meds, nothing yet on MAR DVT prophylaxis Heparin
[2018-06-06] MEDS: Heparin - SQ 10,000 UNITS/ML Vial SQ SCH (20:21)
[2018-06-07 05:00] LABS: Baso % (Auto) 0.1 % (0.0-2.0); Hematocrit 34.4 % (35.0-46.0); Hemoglobin 11.5 gm/dL (11.6-15.3); Lymph # (Auto) 1.4 th/mm3 (1.0-4.8); Lymph % (Auto) 16.1 % (9.0-44.0); Mean Corpuscular HGB Conc 33.5 % (32.0-36.0); Mean Corpuscular Volume 83.7 fL (80.0-100.0); Mean Platelet Volume 8.9 fL (7.0-11.0); Mono # (Auto) 0.3 th/mm3 (0.0-0.9); Mono % (Auto) 2.8 % (0.0-8.0); Neut # (Auto) 7.3 th/mm3 (1.8-7.7); Platelet Count 186 th/mm3 (150-450); Red Blood Count 4.11 mil/mm3 (4.00-5.30); Red Cell Distribution Width 17.4 % (11.6-17.2)
[2018-06-07 05:36] LABS: Anion Gap 7 meq/L (5-15); Blood Urea Nitrogen 14 mg/dL (7-18); Carbon Dioxide 24.1 meq/L (21.0-32.0); Chloride 111 meq/L (98-107); Glomerular Filtration Rate Greater Than 89 mL/min (>89); Glucose,Random 147 mg/dL (74-106); Potassium 3.6 meq/L (3.5-5.1); Sodium 142 meq/L (136-145)
[2018-06-07] MEDS: Heparin - SQ 10,000 UNITS/ML Vial SQ SCH ×2 (06:43→17:55)
[2018-06-07 07:52] LABS: Bacteria,Urine Rare /hpf; Bilirubin,Urine Negative (Negative); Clarity,Urine Hazy (Clear); Color,Urine Yellow (Yellw/Straw); Glucose,Urine (UA) 500 or Greater mg/dL (Negative); Leukocyte Esterase,Urine Trace (Negative); Mucus,Urine Few /lpf (Occasional); Nitrite,Urine Negative (Negative); Specific Gravity,Urine 1.015 (1.002-1.035); Squamous Epithelial Cell,Urine 9 /hpf (0-5)
--- NOTE | 2018-06-07 08:56 | ECG ---
Date Performed: 06/06/2018 Time Performed: 16:21:31 PTAGE: 68 years EKG: Marked baseline artifact SINUS TACHYCARDIA WITH FREQUENT SUPRAVENTRICULAR PREMATURE COMPLEX ES POSSIBLE RIGHT VENTRICULAR CONDUCTION DELAY NONSPECIFIC T-WAVE ABNORMALITY ABNORMAL ECG Both EKGs have significant artifact. I see no definite changes although subtle changes could be missed. PREVIOUS TRACING : 06/19/2017 17.42 DOCTOR: Breezy Rubio Interpretating Date/Time 06/07/2018 08:55:54
--- NOTE | 2018-06-07 09:19 | P.PNIM ---
Subjective Interval history: Patient reports some improvement in her breathing. No chest tightness or wheezing this morning. Obtained more hx from patient--reports having nasal congestion and running nose for 2-3 days prior to admission.She has not been coughing. No fevers or chills. No sick contacts. She has smoked 1ppd cigarettes for the last 50 years. She developed fatigue and gradual shortness of breath on the day of admission which got worse prompting her to call EMS. Physical Exam Vital signs: Vital Signs 06/06/18 16:17 06/06/18 16:18 06/06/18 16:26 Temperature 98.2 F Pulse Rate 110 H Respiratory Rate 42 H Blood Pressure 143/97 H Pulse Oximetry 96 96 96 06/06/18 16:45 06/06/18 17:00 06/06/18 18:00 Temperature Pulse Rate 102 H 106 H Respiratory Rate 27 H 27 H Blood Pressure 123/96 H 128/86 Pulse Oximetry 97 99 100 06/06/18 19:00 06/06/18 19:33 06/06/18 20:00 Temperature Pulse Rate 102 H 100 H Respiratory Rate 28 H 25 H Blood Pressure 118/82 119/77 Pulse Oximetry 100 98 100 06/06/18 20:16 06/06/18 21:30 06/06/18 21:45 Temperature Pulse Rate 105 H Respiratory Rate Blood Pressure Pulse Oximetry 99 93 L 06/06/18 21:57 06/06/18 22:00 06/06/18 23:00 Temperature 97.4 F L Pulse Rate 97 H 96 H 90 Respiratory Rate 21 Blood Pressure 117/67 Pulse Oximetry 97 06/07/18 00:00 06/07/18 00:14 06/07/18 01:00 Temperature 97.3 F L Pulse Rate 88 91 H 86 Respiratory Rate 16 20 Blood Pressure 123/69 Pulse Oximetry 98 95 06/07/18 02:00 06/07/18 03:00 06/07/18 03:31 Temperature Pulse Rate 92 H 100 H 85 Respiratory Rate 18 Blood Pressure Pulse Oximetry 100 06/07/18 03:51 06/07/18 04:00 06/07/18 05:00 Temperature 97.4 F L Pulse Rate 86 94 H Respiratory Rate 21 Blood Pressure 116/72 Pulse Oximetry 97 99 06/07/18 06:00 06/07/18 07:00 Temperature Pulse Rate 99 H 86 Respiratory Rate Blood Pressure Pulse Oximetry Intake & Output 06/06/18 06/07/18 06/07/18 18:59 06:59 18:59 Intake Total 490 / 490 Output Total 750 / 750 Balance -260 / -260 Weight 48.534 kg 52 kg Intake: IV 250 / 250 Azactam Inj 2 GM In NS Inj 100 100 / 100 ML @ 200 mls/hr IV.SIG STAT STA Rx#:[id number] Levaquin 750 mg Premix Inj 150 150 / 150 ML @ 100 mls/hr IV.SIG STAT STA Rx#:[id number] Oral 240 / 240 Output: Urine 750 / 750 Other: # Voids 1 Narrative: GENERAL: middle aged woman,laying in bed, not in distress. HEENT:not pale,anicteric NECK:distended neck veins CARDIOVASCULAR: Regular rate and rhythm without murmurs, gallops, or rubs. RESPIRATORY: Clear to auscultation. Breath sounds equal bilaterally. No wheezes , rales, or rhonchi. GASTROINTESTINAL: Abdomen soft, non-tender, nondistended. Normal active bowel sounds MUSCULOSKELETAL: no pedal edema. NEURO: Alert & Oriented x4 to person, place, time, situation. Moves all ext x4 Results Labs CBC & Chem 7: 06/07/18 04:16 06/07/18 04:16 Imaging Imaging: Impressions Chest X-Ray 06/06/18 16:18 CONCLUSION: Interstitial and alveolar infiltrates bilaterally. Assessment and Plan Plan 68 yo F with 50 pack years cigarette smoking who presented with worsening shortness of breath, found to have desaturated. CXR showing diffuse bilateral interstitial and alveolar patchy opacities. Patient required BIPAP overnight and has now been transitioned to nasal canula. Acute hypoxic respiratory failure-- cxr with patchy infiltrates. BNP mildly elevated to 300. Troponin negative. Continue IV Levofloxacin, DUONEBS, add Tamiflu. keep Oxygen by nasal canula, taper as tolerated. prn BIPAP.ECG unremarkable. Cont IV Lasix check influenza panel, if negative can discontinue Tamiflu. CTA chest-shows cardiomegaly with interstitial edema, small bilateral pleural effusions. check ECHO check procalcitonin, if negative can dc antibiotics. Hyperglycemia-monitor closely, check A1C level. keep on SSI. Mildly elevated liver enzymes-likely in the setting of hypoxia. trend, check hepatitis profile. Mildy hypocalcemia-normal corrected value. check vit d level. DVT ppx with heparin.
--- NOTE | 2018-06-07 10:21 | CT ---
EXAM DATE: 06/07/2018 9:55 AM EST AGE/SEX: 68 years / Female INDICATIONS: Shortness of breath. CLINICAL DATA: This is the patient's initial encounter. Patient reports that signs and symptoms have been present for 1 day and indicates a pain score of 0/10. MEDICAL/SURGICAL HISTORY: None. None. RADIATION DOSE: 7.2 CTDI (mGy) COMPARISON: [facility], CHEST 1V SINGLE AP, 06/06/2018. . TECHNIQUE: Volumetric scanning was performed using a multi-row detector CT scanner during bolus infu amado of 70 ml Omnipaque 350 (iohexol) nonionic water-soluble contrast as a single exam dose. The bairon a was post processed with a variety of visualization algorithms including full volume maximum intensi ty projection and sliding thin slab reformation. Using automated exposure control and adjustment of t he mA and/or kV according to patient size, radiation dose was kept as low as reasonably achievable to obtain optimal diagnostic quality images. DICOM format image data is available electronically for r eview and comparison. FINDINGS: Pulmonary Arteries: No filling defects are seen in the pulmonary arteries out to the subsegmental ve ssels. The left and right pulmonary arteries are normal in diameter. Lung: Bibasilar patchy densities.. Effusion: Small bilateral pleural effusions slightly larger on the right.. Mediastinum: No evidence of mediastinal or hilar adenopathy. Cardiomegaly with interstitial edema. C oronary artery calcifications. Other: The axilla is unremarkable. Kyphosis and degenerative changes thoracic spine. Mild loss of he ight of several thoracic vertebral bodies but no acute compression deformity CONCLUSION: 1. Cardiomegaly with interstitial edema, likely CHF. 2. Small bilateral pleural effusions slightly greater on the right. 3. No evidence for pulmonary embolism. 4. Coronary artery calcifications. Electronically signed by: Saeed Whitley MD Board Certified Radiologist 06/07/2018 10:19 AM EST
[2018-06-07 14:57] LABS: Chol/HDL Ratio 2.45 Ratio; HDL Cholesterol 49.2 mg/dL (40.0-60.0)
[2018-06-07] MEDS: Oseltamivir Phosphate 75 MG Capsule PO SCH ×2 (15:39→20:26)
[2018-06-07] MEDS: Acetaminophen 325 MG Tablet PO PRN (21:55)
[2018-06-08] MEDS ORDERED: Sodium Chlor 0.9% Inj 500 ML IV.SIG ONE (03:47)
[2018-06-08 05:32] LABS: Calcium 8.2 mg/dL (8.5-10.1); Carbon Dioxide 32.9 meq/L (21.0-32.0); Potassium 3.3 meq/L (3.5-5.1)
[2018-06-08] MEDS: Heparin - SQ 10,000 UNITS/ML Vial SQ SCH ×2 (06:07→18:48)
[2018-06-08] MEDS ORDERED: dilTIAZem Inj 125 MG in Sodium Chlor 0.9% Inj 100 ML IV.CONT PRN (08:46)
[2018-06-08] MEDS ORDERED: Metoprolol Tartrate 25 MG Tablet PO SCH (09:00)
[2018-06-08] MEDS ORDERED: Vancomycin Consult Pharmacy OTHER PRN (09:08)
--- NOTE | 2018-06-08 09:13 | P.PNIM ---
Subjective Interval history: Overnight events noted, patient went into A fib with RVR, was given IV Diltiazem. Patient has no dizziness or lightheadedness at this time. she reports her breathing is much better now. Physical Exam Vital signs: Vital Signs 06/07/18 09:00 06/07/18 10:00 06/07/18 11:00 Temperature Pulse Rate 104 H 94 H 86 Respiratory Rate Blood Pressure Pulse Oximetry 06/07/18 12:00 06/07/18 12:58 06/07/18 13:00 Temperature 97.6 F Pulse Rate 82 82 98 H Respiratory Rate 16 16 Blood Pressure 99/71 L Pulse Oximetry 94 L 06/07/18 14:00 06/07/18 15:00 06/07/18 15:45 Temperature Pulse Rate 84 93 H 82 Respiratory Rate 14 Blood Pressure Pulse Oximetry 06/07/18 15:54 06/07/18 16:00 06/07/18 17:00 Temperature 97.7 F Pulse Rate 88 100 H 97 H Respiratory Rate 18 Blood Pressure 107/76 Pulse Oximetry 97 06/07/18 18:00 06/07/18 19:00 06/07/18 20:00 Temperature 97.4 F L Pulse Rate 99 H 73 83 Respiratory Rate 18 Blood Pressure 111/67 Pulse Oximetry 97 06/07/18 20:38 06/07/18 21:00 06/07/18 22:00 Temperature Pulse Rate 74 106 H 76 Respiratory Rate 18 Blood Pressure Pulse Oximetry 06/07/18 23:00 06/08/18 00:00 06/08/18 00:35 Temperature 97.6 F Pulse Rate 81 82 71 Respiratory Rate 18 18 Blood Pressure 113/59 L Pulse Oximetry 97 06/08/18 01:00 06/08/18 01:12 06/08/18 02:00 Temperature Pulse Rate 112 H 130 H Respiratory Rate 17 Blood Pressure Pulse Oximetry 06/08/18 03:00 06/08/18 03:21 06/08/18 04:44 Temperature 97.9 F Pulse Rate 123 H 125 H 119 H Respiratory Rate Blood Pressure 89/61 L Pulse Oximetry 96 06/08/18 05:12 Temperature Pulse Rate 93 H Respiratory Rate Blood Pressure 117/61 Pulse Oximetry Intake & Output 06/07/18 06/08/18 06/08/18 18:59 06:59 18:59 Intake Total 2150 / 2150 1680 / 1680 Output Total 2650 / 2650 1999 Balance -500 / -500 -320 / -320 Weight 51 kg Intake: IV 150 / 150 Levaquin 750 mg Premix Inj 150 150 / 150 ML @ 100 mls/hr IV.SIG Q24H CARLOS Rx#:[id number] Oral 1999 1680 / 1680 Output: Urine 2650 / 2650 1999 Other: # Voids 4 Narrative: GENERAL: middle aged woman,seated in chair, not in distress. HEENT:not pale,anicteric NECK:slight neck vein distension. CARDIOVASCULAR: irregularly irregular heart sound,no murmurs, gallops, or rubs. RESPIRATORY: Breath sounds equal bilaterally.minimal basal creps. No wheezes, or rhonchi. GASTROINTESTINAL: Abdomen soft, non-tender, nondistended. Normal active bowel sounds MUSCULOSKELETAL: no pedal edema. NEURO: Alert & Oriented x4 to person, place, time, situation. Moves all ext x4 Results Labs CBC & Chem 7: 06/07/18 04:16 06/08/18 03:34 Labs: Microbiology 06/06/18 16:25 Blood - Peripheral Aerobic Blood Culture - Preliminary gram positive cocci 06/06/18 16:25 Blood - Peripheral Anaerobic Blood Culture - Preliminary gram positive cocci 06/06/18 16:20 Blood - Peripheral Aerobic Blood Culture - Preliminary gram positive cocci 06/06/18 16:20 Blood - Peripheral Anaerobic Blood Culture - Preliminary gram positive cocci 06/07/18 13:50 Nasal Wash Influenza Types A,B Antigen - Final Negative for FLU A and B antigen Infection due to influenza A or B cannot be ruled out since the antigen present in the sample may be below the detection limit of the test. Imaging Imaging: Impressions Chest CTA 06/07/18 17:45 CONCLUSION: 1. Cardiomegaly with interstitial edema, likely CHF. 2. Small bilateral pleural effusions slightly greater on the right. 3. No evidence for pulmonary embolism. 4. Coronary artery calcifications. Assessment and Plan Plan 68 yo F with 50 pack years cigarette smoking who presented with worsening shortness of breath, found to have desaturated. CXR showing diffuse bilateral interstitial and alveolar patchy opacities. Patient required BIPAP overnight and has now been transitioned to nasal canula. Acute hypoxic respiratory failure-- cxr with patchy infiltrates. BNP mildly elevated to 300. Troponin negative. flu negative. DUONEBS prn. keep Oxygen by nasal canula, taper as tolerated. prn BIPAP. Hold Lasix for now, appears euvolemic. CTA chest-shows cardiomegaly with interstitial edema, small bilateral pleural effusions. ordered ECHO--pending. Clinical features in keeping with new onset congestive heart failure, consulted cardiology. New Onset Atrial fib with RVR--received Diltiazem early am, start diltiazem drip prn. correct electrolyte imbalances. Hypokalemia-likely in setting of diuresis-replete as needed. Bacteremia-blood cultures from admission reported this morning(06/08) as growing g+ cocci in clusters and chains, in both aerobic and anaerobic bottles. Start on IV Vanc. Consult ID Hyperglycemia-monitor closely, check A1C level. keep on SSI. Mildly elevated liver enzymes-likely in the setting of hypoxia. trend, check hepatitis profile. Mildy hypocalcemia-normal corrected value. vit d level normal. DVT ppx with heparin.
[2018-06-08] MEDS ORDERED: Sodium Chlor 0.9% Inj 250 ML IV.SIG SCH (09:15)
[2018-06-08] MEDS: Potassium Chlor 20 mEq Premix 20 MEQ/100 ML PIGGYBACK IV.SIG SCH ×2 (10:33→15:08)
[2018-06-08] MEDS: Vancomycin Inj 1,000 MG in Sodium Chlor 0.9% Inj 250 ML IV.SIG SCH (11:34)
--- NOTE | 2018-06-08 14:03 | MB ---
cc: Usama Hayward MD DATE: 06/08/2018 REQUESTING PHYSICIAN: Carolyn Prather MD REASON FOR CONSULTATION: Bacteremia. HISTORY OF PRESENT ILLNESS: This is a 68-year-old white female who presented to the emergency department with respiratory failure and decreased saturation. The patient was having difficulty breathing and lightheadedness and 911 was called and she was brought to the emergency department for evaluation. She was given BiPAP with improvement. Chest x-ray showed interstitial and alveolar infiltrates bilaterally. The white blood cell count was elevated at 15.2. The patient was afebrile. She had an elevated heart rate and increased respiratory rate. Blood cultures were drawn on admission and came back with gram-positive cocci in all 4 bottles. One BOTTLE has identified so far coag-negative Staph. The patient denies chills or nausea or vomiting. The patient notes cough, but no sputum production. She notes that she had a ribcage pain on both sides, but that is not unusual for her. CT scan of the chest was performed and it showed cardiomegaly with interstitial edema and also small bilateral pleural effusion. There was no evidence of pulmonary embolism. Coronary calcification was also noted. The patient was noted to have atrial fibrillation with rapid ventricular response and she also had some bits of ventricular tachycardia yesterday evening. She is receiving potassium supplementation. IV vancomycin was started by the medical attending. The patient denies back pain. She states that she has been getting occasional cramping in her legs. She denies prior history of blood infection. PAST MEDICAL HISTORY: Hypercholesterolemia, schizophrenia, history of skin abscess. ALLERGIES: PENICILLIN. MEDICATIONS: 1. Cardizem. 2. Subcutaneous heparin. 3. Potassium. 4. Vancomycin. SOCIAL HISTORY: The patient has been a lifelong smoker. She has smoked for about 50 years. She smokes about 10 cigarettes a day currently. No alcohol. No illicit drugs. FAMILY HISTORY: Noncontributory. REVIEW OF SYSTEMS: CONSTITUTIONAL: Denies fever or chills. HEAD, EARS, EYES, NOSE AND THROAT: Denies visual difficulties or swallowing difficulties or nasal bleeding. Denies neck pain or swelling. CARDIOVASCULAR: Denies palpitations or chest pain. RESPIRATORY: Significant for shortness of breath and cough. GASTROINTESTINAL: Denies nausea, vomiting, abdominal pain or diarrhea. GENITOURINARY: Denies urgency, frequency or dysuria. HEMATOPOIETIC: Denies easy bruising or bleeding. INTEGUMENTARY: Denies skin rash or itching. NEUROLOGIC: Denies problems with coordination. PSYCHIATRIC: Denies mood changes. PHYSICAL EXAMINATION: GENERAL: She is a frail-appearing, thin female in no acute distress. She is awake and alert and oriented. VITAL SIGNS: Temperature 97.9, BP 170/61, respiratory rate 20, heart rate 161. HEENT: Head is atraumatic. Extraocular movements are grossly intact. Pupils reactive to light. No icterus. Oropharynx mucosa slightly dry. The patient is edentulous. NECK: Supple without adenopathy. LUNGS: Scattered bilateral rhonchi. HEART: Irregular rate and rhythm. No murmurs. No rubs. No gallops. ABDOMEN: Bowel sounds present. Soft, no tenderness appreciated. RECTAL: Not performed. EXTREMITIES: No clubbing, cyanosis, or edema. SKIN: No rash. NEUROLOGIC: No gross focal findings. PSYCHIATRIC: The patient is calm and cooperative. LABORATORY DATA: WBC 9.0, platelets 186, hemoglobin 11.5 with 81% neutrophils. Creatinine 0.76, BUN 16, sodium 142. Urine culture revealed mixed beatris. IMPRESSION: Bacteremia in a patient who does not clinically have symptoms suggesting acute infection; however, she was admitted with respiratory symptoms and heart rate and respiratory rate were increased along with a white blood cell count. White blood cell count is lower currently. I do not find a clear foci for the bacteremia in this patient and it is possible the bacteria in the blood could be pseudobacteremia; however, given 4 bottles positive, one would have to assume that it is significant unless the bacteria are all different coagulase-negative Staphylococcus bacteria. Symptomatically, she does not appear septic. RECOMMENDATIONS: 1. Repeat the blood cultures. 2. Continue the vancomycin. 3. Follow the clinical status and blood cultures and follow her vital signs. A 2-D echo has been ordered and that should also be followed as well to see if there is any evidence suggesting endocardial or valvular lesions that may be associated. Thank you for this consultation. The patient's progress will be monitored and further recommendations will be given on followup is necessary. MD JENNIFER Chacon/avelino , 01:24 PM , 01:42 PM
--- NOTE | 2018-06-08 16:13 | ECG ---
Date Performed: 06/08/2018 Time Performed: 04:33:14 PTAGE: 68 years EKG: Atrial fibrillation with rapid ventricular response. Rightward axis Anteroseptal T wave junior nges are nonspecific Abnormal ECG Compared to PREVIOUS TRACING , atrial fibrillation is new. PREVIOUS TRACIN06/06/2018 16.21.31 DOCTOR: Hal Chavarria Interpretating Date/Time 06/08/2018 16:12:48
--- NOTE | 2018-06-08 19:04 | ECHRPT ---
Indication: heart failure CONCLUSIONS Technically difficult due to tachycardia The left ventricular systolic function is severely reduced with an estimated ejection fraction in th e range of 30-35%. There is global left ventricular dysfunction. Trace mitral valve regurgitation. There is mild tricuspid valve regurgitation. BP: / HR: Rhythm: MEASUREMENTS (Male / Female) Normal Values Technical Quality: 2D ECHO LV Diastolic Diameter PLAX 5.0 cm 4.2 - 5.9 / 3.9 - 5.3 cm LV Systolic Diameter PLAX 4.3 cm IVS Diastolic Thickness 1.0 cm 0.6 - 1.0 / 0.6 - 0.9 cm LVPW Diastolic Thickness 0.9 cm 0.6 - 1.0 / 0.6 - 0.9 cm LV Relative Wall Thickness 0.4 RV Internal Dim ED PLAX 2.3 cm LVOT Diameter 1.6 cm DOPPLER AV Peak Velocity 141.0 cm/s AV Peak Gradient 8.0 mmHg LVOT Peak Velocity 77.1 cm/s LVOT Peak Gradient 2.4 mmHg AV Area Cont Eq pk 1.1 cm Mitral E Point Velocity 132.0 cm/s Mitral A Point Velocity 32.7 cm/s Mitral E to A Ratio 4.0 LV E' Lateral Velocity 4.8 cm/s Mitral E to LV E' Lateral Ratio 27.6 LV E' Septal Velocity 5.0 cm/s Mitral E to LV E' Septal Ratio 26.6 TR Peak Velocity 293.0 cm/s TR Peak Gradient 34.3 mmHg Right Atrial Pressure 10.0 mmHg Pulmonary Artery Systolic Pressu 44.3 mmHg Right Ventricular Systolic Press 44.3 mmHg PV Peak Velocity 106.0 cm/s PV Peak Gradient 4.5 mmHg FINDINGS LEFT VENTRICLE Normal left ventricular size. Wall thickness is normal. The left ventricular systolic function is severely reduced with an estimated ejection fraction in th e range of 30-35%. There is global left ventricular dysfunction. Akinetic mid-inferior wall motion. RIGHT VENTRICLE Grossly normal LEFT ATRIUM The left atrial size is mildly dilated. RIGHT ATRIUM The right atrial size is normal. ATRIAL SEPTUM Normal atrial septal thickness AORTA The aortic root and proximal ascending aorta are normal in size on limited imaging. MITRAL VALVE Mild thickening of the mitral valve leaflets. Trace mitral valve regurgitation. No mitral valve stenosis. AORTIC VALVE No aortic valve stenosis or regurgitation. TRICUSPID VALVE Structurally normal tricuspid valve. There is mild tricuspid valve regurgitation. No tricuspid valve stenosis. PULMONARY VALVE No pulmonary valve regurgitation or stenosis. VESSELS The inferior vena cava is normal in size. PERICARDIUM No pericardial effusion. Rubén Wilson DO (Electronically Signed) Final Date:08 June 2018 19:02
[2018-06-08] MEDS ORDERED: Sodium Chlor 0.9% Inj 500 ML IV.SIG SCH (20:00)
[2018-06-08] MEDS: ALPRAZolam 0.25 MG Tablet PO PRN (21:12)
[2018-06-08] MEDS: Carvedilol 6.25 MG Tablet PO SCH (21:12)
[2018-06-08] MEDS: ARIPiprazole 5 MG Tablet PO SCH (22:30)
--- NOTE | 2018-06-08 23:26 | MB ---
cc: Rubén Wilson DO DATE: 06/08/2018 REASON FOR CONSULTATION: Atrial fibrillation, congestive heart failure, bacteremia. HISTORY OF PRESENT ILLNESS: Lisa Vega is a pleasant 68-year-old female who presented to [facility] Emergency Room due to respiratory failure and shortness of breath. The patient states that she was feeling fine until she started getting short of breath and congested. She started feeling somewhat lightheaded and so 911 was called and she was brought to the emergency room. She was given BiPAP with some improvement. She was found to have atrial fibrillation with rapid ventricular response. EKG showed probable sinus rhythm with sinus arrhythmia. Then, while here, she underwent a CTA, which showed bilateral pleural effusions and cardiomegaly. Repeat EKG showed probable atrial fibrillation with rapid ventricular response. I was asked to see her due to her congestive heart failure as well as atrial fibrillation with rapid ventricular response. Blood cultures were drawn and 4/4 bottles were positive for gram-positive cocci. PAST MEDICAL HISTORY: 1. Hyperlipidemia. 2. Schizophrenia. 3. History of skin abscesses. 4. Diabetes mellitus. PAST SURGICAL HISTORY: Multiple teeth removed. ALLERGIES: PENICILLIN. MEDICATIONS: 1. Lipitor 80 mg daily. 2. Seroquel 400 mg every night. 3. Omeprazole 20 mg daily. 4. Duloxetine 60 mg daily. 5. Metformin 500 mg b.i.d. 6. Aspirin 81 mg daily. 7. Benztropine 2 mg b.i.d. 8. Abilify as directed. FAMILY HISTORY: Denies sudden cardiac within the family. SOCIAL HISTORY: The patient is a lifelong smoker and currently smokes 10 cigarettes a day. She smoked for about 50 years. Denies alcohol or drug abuse. REVIEW OF SYSTEMS: Fourteen systems were reviewed including osteopathic. Pertinent positives and negatives above, otherwise negative. PHYSICAL EXAMINATION: VITAL SIGNS: Temperature 97.8, heart rate 120, blood pressure 91/55, respirations 20, pulse oximetry 95% on 3 liters. GENERAL: The patient is older than her stated age and overall frail appearing. HEENT: Extraocular muscles intact. Mucous membranes moist. NECK: Supple. No JVD at 45 degrees. No carotid bruits heard bilaterally. Carotid upstroke is brisk in nature. HEART: Irregularly irregular. Positive first and second heart sounds with no noted murmurs, gallops or rubs. LUNGS: Scattered rhonchi bilaterally. ABDOMEN: Soft, nontender, nondistended. No organomegaly noted. EXTREMITIES: Show no clubbing, cyanosis or edema. Femoral and distal pulses are intact bilaterally. NEUROLOGIC: No focal deficits. SKIN: Warm, dry and intact. OSTEOPATHIC: No kyphoscoliosis, lordosis or paraspinal tender points. LABORATORY DATA: Hemoglobin 11.5, hematocrit 34.4, platelets 186. Potassium 3.3, BUN 16, creatinine 0.76. Troponin 0.03. Electrocardiogram (06/08/2018 at 04:33): Atrial fibrillation with rapid ventricular response, nonspecific ST-T wave changes. IMPRESSION: 1. New onset atrial fibrillation with rapid ventricular response. 2. Congestive heart failure, unknown at this time whether systolic or diastolic. 3. Bacteremia with 4 bottles positive for gram-positive cocci from unknown source. 4. Tobacco abuse. 5. Schizophrenia. 6. Diabetes mellitus. 7. Acute respiratory failure. RECOMMENDATIONS: 1. Ms. Vega presented with a combination of shortness of breath, most likely due to heart failure as well as atrial fibrillation with rapid ventricular response. 2. Her blood pressure has been somewhat borderline low as she was given Cardizem IV. 3. We will attempt to try to control her heart rate with AV denys blockers, but if blood pressure continues to be low, she may need digoxin to further control her heart rates. 4. We will need to attempt to diurese her, although this is difficult with her borderline hypotension after receiving Cardizem IV. Ultimately, I think that we should attempt to control her heart rates. Hopefully, her blood pressure will be better and at that time, we will be able to diurese her further. 5. Infectious disease has been consulted for her bacteremia, at this time, I see no viable source for her gram-positive cocci. 6. We will check a 2-D echo to look at her overall left ventricular function, cardiac structure and possible valvulopathies. 7. Further recommendations will be made based on the hospital course. 8. I spoke to her for greater than 3 minutes about tobacco cessation. Thank you for allowing me to see Lisa Vega. If there are any questions, please do not hesitate to call. Rubén Wilson DO VGP/sv , 10:48 PM , 11:00 PM
[2018-06-09 00:29] LABS: Troponin I 0.02 ng/mL (0.02-0.05)
[2018-06-09 03:57] LABS: Baso # (Auto) 0.1 th/mm3 (0.0-0.2); Baso % (Auto) 0.9 % (0.0-2.0); Eos # (Auto) 0.6 th/mm3 (0.0-0.4); Eos % (Auto) 6.3 % (0.0-4.0); Hematocrit 33.9 % (35.0-46.0); Hemoglobin 11.4 gm/dL (11.6-15.3); Lymph # (Auto) 3.1 th/mm3 (1.0-4.8); Lymph % (Auto) 34.6 % (9.0-44.0); Mean Corpuscular HGB Conc 33.6 % (32.0-36.0); Mean Corpuscular Hemoglobin 28.1 pg (27.0-34.0); Mean Corpuscular Volume 83.7 fL (80.0-100.0); Mean Platelet Volume 8.8 fL (7.0-11.0); Mono # (Auto) 0.5 th/mm3 (0.0-0.9); Mono % (Auto) 5.4 % (0.0-8.0); Neut # (Auto) 4.7 th/mm3 (1.8-7.7); Neut % (Auto) 52.8 % (16.0-70.0); Platelet Count 210 th/mm3 (150-450); Red Blood Count 4.04 mil/mm3 (4.00-5.30); Red Cell Distribution Width 17.6 % (11.6-17.2); White Blood Count 8.9 th/mm3 (4.0-11.0)
[2018-06-09 04:27] LABS: Troponin I 0.03 ng/mL (0.02-0.05)
[2018-06-09 04:32] LABS: Anion Gap 4 meq/L (5-15); Blood Urea Nitrogen 13 mg/dL (7-18); Calcium 8.3 mg/dL (8.5-10.1); Carbon Dioxide 29.6 meq/L (21.0-32.0); Chloride 110 meq/L (98-107); Glomerular Filtration Rate Greater Than 89 mL/min (>89); Glucose,Random 133 mg/dL (74-106); Potassium 4.1 meq/L (3.5-5.1); Sodium 144 meq/L (136-145)
[2018-06-09] MEDS: Vancomycin Inj 1,000 MG in Sodium Chlor 0.9% Inj 250 ML IV.SIG SCH ×2 (05:00→21:04)
[2018-06-09] MEDS: Heparin - SQ 10,000 UNITS/ML Vial SQ SCH ×2 (05:57→18:47)
[2018-06-09] MEDS: Carvedilol 6.25 MG Tablet PO SCH ×2 (08:08→20:48)
--- NOTE | 2018-06-09 11:52 | P.PNID ---
Subjective Remarks: Patient states she feels okay. She denies chills. Afebrile. 2D echo noted. The ejection fraction is decreased. Repeat blood culture is pending. Previous blood culture has staph coag negative in 4 bottles. 68-year-old white female who presented to the emergency department with respiratory failure and decreased saturation. The patient was having difficulty breathing and lightheadedness and 911 was called and she was brought to the emergency department for evaluation. She was given BiPAP with improvement. Chest x-ray showed interstitial and alveolar infiltrates bilaterally. Past Medical History: PAST MEDICAL HISTORY: Hypercholesterolemia, schizophrenia, history of skin abscess. Allergies/Adverse Reactions: Allergies penicillin G Allergy (Severe, Verified 12/12/17 17:36) Hives Per pt. Objective Vital Signs 06/08/18 12:00 06/08/18 13:00 06/08/18 14:00 Temperature 97.6 F Pulse Rate 124 H 132 H 144 H Respiratory Rate 20 Blood Pressure 91/66 L Pulse Oximetry 98 06/08/18 15:00 06/08/18 15:26 06/08/18 15:48 Temperature Pulse Rate 121 H 133 H 181 H Respiratory Rate Blood Pressure Pulse Oximetry 06/08/18 16:00 06/08/18 17:00 06/08/18 18:00 Temperature 97.8 F Pulse Rate 114 H 110 H 116 H Respiratory Rate 20 Blood Pressure 121/70 Pulse Oximetry 97 06/08/18 19:00 06/08/18 19:41 06/08/18 20:00 Temperature 98.8 F Pulse Rate 103 H 107 H 81 Respiratory Rate 18 Blood Pressure 78/57 L Pulse Oximetry 98 06/08/18 21:00 06/08/18 22:00 06/08/18 23:00 Temperature Pulse Rate 103 H 90 77 Respiratory Rate Blood Pressure Pulse Oximetry 06/09/18 00:00 06/09/18 01:00 06/09/18 01:52 Temperature 98.5 F Pulse Rate 80 85 92 H Respiratory Rate 18 Blood Pressure 96/55 L Pulse Oximetry 96 06/09/18 04:00 06/09/18 05:00 06/09/18 05:37 Temperature 98.7 F Pulse Rate 73 67 90 Respiratory Rate 18 Blood Pressure 137/65 Pulse Oximetry 97 06/09/18 07:00 06/09/18 08:00 Temperature 97.2 F L Pulse Rate 71 88 Respiratory Rate 20 Blood Pressure 105/57 L Pulse Oximetry 98 Intake & Output 06/08/18 06/09/18 06/09/18 18:59 06:59 18:59 Intake Total 2640 / 2640 240 / 240 250 / 250 Output Total 1900 / 1900 Balance 740 / 740 240 / 240 250 / 250 Weight 49.5 kg Intake: IV 1200 / 1200 250 / 250 KCl 20 mEq Premix Inj 20 meq In 200 / 200 100 ml @ 50 mls/hr IV.SIG Q2H CARLSO Rx#:[id number] NS Inj 250 ML @ 25 mls/hr IV. 250 / 250 SIG BOLUS CARLOS Rx#:[id number] Vancomycin Inj 1,000 MG In NS 250 / 250 250 / 250 Inj 250 ML @ 250 mls/hr IV.SIG Q18H CARLOS Rx#:[id number] Oral 1440 / 1440 240 / 240 Output: Urine 1900 / 1900 Other: # Voids 2 Date of Last Bowel Movement 06/07/18 06/07/18 # Bowel Movements 0 06/08/18 15:01 Blood - Peripheral Aerobic Blood Culture - Preliminary No growth in 1 day 06/08/18 15:01 Blood - Peripheral Anaerobic Blood Culture - Preliminary No growth in 1 day 06/08/18 14:56 Blood - Peripheral Aerobic Blood Culture - Preliminary No growth in 1 day 06/08/18 14:56 Blood - Peripheral Anaerobic Blood Culture - Preliminary No growth in 1 day 06/06/18 16:25 Blood - Peripheral Aerobic Blood Culture - Preliminary Staphylococcus coag negative 06/06/18 16:25 Blood - Peripheral Anaerobic Blood Culture - Preliminary Staphylococcus coag negative 06/06/18 16:20 Blood - Peripheral Aerobic Blood Culture - Preliminary Staphylococcus coag negative 06/06/18 16:20 Blood - Peripheral Anaerobic Blood Culture - Preliminary Staphylococcus coag negative 06/09/18 03:47 Blood - Peripheral Aerobic Blood Culture - Pending 06/09/18 03:47 Blood - Peripheral Anaerobic Blood Culture - Pending 06/09/18 03:35 Blood - Peripheral Aerobic Blood Culture - Pending 06/09/18 03:35 Blood - Peripheral Anaerobic Blood Culture - Pending 06/07/18 06:15 Catheterized Urine Urine Culture - Final 50-100,000 cfu/mL mixed gram positive beatris (probable contaminants) 06/07/18 13:50 Nasal Wash Influenza Types A,B Antigen - Final Negative for FLU A and B antigen Infection due to influenza A or B cannot be ruled out since the antigen present in the sample may be below the detection limit of the test. Lab - Hematology Results 06/09/18 03:35 WBC 8.9 RBC 4.04 Hgb 11.4 L Hct 33.9 L MCV 83.7 MCH 28.1 MCHC 33.6 RDW 17.6 H Plt Count 210 MPV 8.8 Neut % (Auto) 52.8 Lymph % (Auto) 34.6 Eagle % (Auto) 5.4 Eos % (Auto) 6.3 H Baso % (Auto) 0.9 Neut # (Auto) 4.7 Lymph # (Auto) 3.1 Eagle # (Auto) 0.5 Eos # (Auto) 0.6 H Baso # (Auto) 0.1 WBC Differential . Differential Comment Auto diff final Lab - Chemistry Results 06/07/18 06/07/18 06/07/18 04:16 04:16 18:39 Sodium Potassium Chloride Carbon Dioxide Anion Gap BUN Creatinine Estimated GFR POC Glucose 142 H Random Glucose Calcium Magnesium Total Creatine Kinase Troponin I Triglycerides 45 Cholesterol 121 LDL Cholesterol, Calc 63 HDL Cholesterol 49.2 Cholesterol/HDL Ratio 2.45 Vitamin D 25-Hydroxy 51.3 Procalcitonin 0.06 06/07/18 06/08/18 06/08/18 20:21 03:34 07:57 Sodium 142 Potassium 3.3 L Chloride 104 Carbon Dioxide 32.9 H Anion Gap 5 BUN 16 Creatinine 0.76 Estimated GFR 76 L POC Glucose 129 H 137 H Random Glucose 177 H Calcium 8.2 L Magnesium 2.0 Total Creatine Kinase Troponin I Triglycerides Cholesterol LDL Cholesterol, Calc HDL Cholesterol Cholesterol/HDL Ratio Vitamin D 25-Hydroxy Procalcitonin 06/08/18 06/08/18 06/09/18 17:30 23:35 03:35 Sodium 144 Potassium 5.2 H D 4.1 D Chloride 110 H Carbon Dioxide 29.6 Anion Gap 4 L BUN 13 Creatinine 0.59 Estimated GFR Greater than 89 POC Glucose Random Glucose 133 H Calcium 8.3 L Magnesium Total Creatine Kinase 164 Troponin I 0.02 Triglycerides Cholesterol LDL Cholesterol, Calc HDL Cholesterol Cholesterol/HDL Ratio Vitamin D 25-Hydroxy Procalcitonin 06/09/18 03:35 Sodium Potassium Chloride Carbon Dioxide Anion Gap BUN Creatinine Estimated GFR POC Glucose Random Glucose Calcium Magnesium Total Creatine Kinase 147 Troponin I 0.03 Triglycerides Cholesterol LDL Cholesterol, Calc HDL Cholesterol Cholesterol/HDL Ratio Vitamin D 25-Hydroxy Procalcitonin Imaging: ITS Impressions Chest X-Ray 06/06/18 16:18 CONCLUSION: Interstitial and alveolar infiltrates bilaterally. Chest CTA 06/07/18 17:45 CONCLUSION: 1. Cardiomegaly with interstitial edema, likely CHF. 2. Small bilateral pleural effusions slightly greater on the right. 3. No evidence for pulmonary embolism. 4. Coronary artery calcifications. Physical Exam: PHYSICAL EXAMINATION: GENERAL: No acute distress. Awake and alert and oriented. HEENT: Head is atraumatic. Extraocular movements are grossly intact. Pupils reactive to light. No icterus. Oropharynx mucosa slightly dry. The patient is edentulous. NECK: Supple without adenopathy. LUNGS: Decreased breath sounds. HEART: Irregular rate and rhythm. No murmurs. No rubs. No gallops. ABDOMEN: Bowel sounds present. Soft, no tenderness appreciated. EXTREMITIES: No clubbing, cyanosis, or edema. SKIN: No rash. NEUROLOGIC: No gross focal findings. PSYCHIATRIC: Calm and cooperative. Assessment and Plan - Plan IMPRESSION: Bacteremia due to coag negative staph. No clear etiology. RECOMMENDATIONS: 1. Follow the repeat blood cultures. 2. Continue the vancomycin. 3. Additional recommendations depending on the repeat blood cultures.
--- NOTE | 2018-06-09 12:43 | P.PNIM ---
Subjective Interval history: currently in SR- 70s no complains states few days ago with ankle swelling- now gone smoker states she sees heart doctor- Dr. Crisostomo reviewed telemetry- occasional PACs vs intermittent a fib Physical Exam Vital signs: Vital Signs 06/08/18 13:00 06/08/18 14:00 06/08/18 15:00 Temperature Pulse Rate 132 H 144 H 121 H Respiratory Rate Blood Pressure Pulse Oximetry 06/08/18 15:26 06/08/18 15:48 06/08/18 16:00 Temperature 97.8 F Pulse Rate 133 H 181 H 114 H Respiratory Rate 20 Blood Pressure 121/70 Pulse Oximetry 97 06/08/18 17:00 06/08/18 18:00 06/08/18 19:00 Temperature Pulse Rate 110 H 116 H 103 H Respiratory Rate Blood Pressure Pulse Oximetry 06/08/18 19:41 06/08/18 20:00 06/08/18 21:00 Temperature 98.8 F Pulse Rate 107 H 81 103 H Respiratory Rate 18 Blood Pressure 78/57 L Pulse Oximetry 98 06/08/18 22:00 06/08/18 23:00 06/09/18 00:00 Temperature 98.5 F Pulse Rate 90 77 80 Respiratory Rate 18 Blood Pressure 96/55 L Pulse Oximetry 96 06/09/18 01:00 06/09/18 01:52 06/09/18 04:00 Temperature 98.7 F Pulse Rate 85 92 H 73 Respiratory Rate 18 Blood Pressure 137/65 Pulse Oximetry 97 06/09/18 05:00 06/09/18 05:37 06/09/18 07:00 Temperature Pulse Rate 67 90 71 Respiratory Rate Blood Pressure Pulse Oximetry 06/09/18 08:00 Temperature 97.2 F L Pulse Rate 88 Respiratory Rate 20 Blood Pressure 105/57 L Pulse Oximetry 98 Intake & Output 06/08/18 06/09/18 06/09/18 18:59 06:59 18:59 Intake Total 2640 / 2640 240 / 240 250 / 250 Output Total 1900 / 1900 Balance 740 / 740 240 / 240 250 / 250 Weight 49.5 kg Intake: IV 1200 / 1200 250 / 250 KCl 20 mEq Premix Inj 20 meq In 200 / 200 100 ml @ 50 mls/hr IV.SIG Q2H CARLOS Rx#:[id number] NS Inj 250 ML @ 25 mls/hr IV. 250 / 250 SIG BOLUS CARLOS Rx#:[id number] Vancomycin Inj 1,000 MG In NS 250 / 250 250 / 250 Inj 250 ML @ 250 mls/hr IV.SIG Q18H CARLOS Rx#:[id number] Oral 1440 / 1440 240 / 240 Output: Urine 1900 / 1900 Other: # Voids 2 Date of Last Bowel Movement 06/07/18 06/07/18 # Bowel Movements 0 Narrative: awake and alert, no acute distress anciteric neck supple lungs- decreased breath sounds, no rales, no wheezes irregular rhythm abdomen- soft, nontender extremiteis no edema no calf tenderness neuro exam- non focal Results Labs CBC & Chem 7: 06/09/18 03:35 06/09/18 03:35 Labs: Microbiology 06/08/18 15:01 Blood - Peripheral Aerobic Blood Culture - Preliminary No growth in 1 day 06/08/18 15:01 Blood - Peripheral Anaerobic Blood Culture - Preliminary No growth in 1 day 06/08/18 14:56 Blood - Peripheral Aerobic Blood Culture - Preliminary No growth in 1 day 06/08/18 14:56 Blood - Peripheral Anaerobic Blood Culture - Preliminary No growth in 1 day 06/06/18 16:25 Blood - Peripheral Aerobic Blood Culture - Preliminary Staphylococcus coag negative 06/06/18 16:25 Blood - Peripheral Anaerobic Blood Culture - Preliminary Staphylococcus coag negative 06/06/18 16:20 Blood - Peripheral Aerobic Blood Culture - Preliminary Staphylococcus coag negative 06/06/18 16:20 Blood - Peripheral Anaerobic Blood Culture - Preliminary Staphylococcus coag negative 06/07/18 06:15 Catheterized Urine Urine Culture - Final 50-100,000 cfu/mL mixed gram positive beatris (probable contaminants) Assessment and Plan Plan 68 yo F with 50 pack years cigarette smoking who presented with worsening shortness of breath, found to have desaturated. CXR showing diffuse bilateral interstitial and alveolar patchy opacities. Patient required BIPAP overnight and has now been transitioned to nasal canula. Acute hypoxic respiratory failure-- Acute systolic heart failure - EF 30-35% Intermittent atrial fibrillation -cxr with patchy infiltrates. BNP mildly elevated to 300. Troponin negative. flu negative. -DUONEBS prn. keep Oxygen by nasal canula, taper as tolerated. prn BIPAP. -Hold Lasix for now, appears euvolemic. -CTA chest-shows cardiomegaly with interstitial edema, small bilateral pleural effusions. -consulted cardiology. - continue Lasix 40 mg bid IV- change to po eventually - continue coreg 6.25 mg bid - start enalapril 2,5 mg daily Underlying COPD Heavy smoker - get walk test prior to DC - get PFTs Hypokalemia-- improved - likely in setting of diuresis-replete as needed. Bacteremia-blood cultures from admission reported this morning(06/08) as growing g+ cocci in clusters and chains, in both aerobic and anaerobic bottles. - Start on IV Vanc. - ID ff Hyperglycemia-monitor closely, check A1C level- pending . keep on SSI. Mildly elevated liver enzymes-likely in the setting of hypoxia. trend, check hepatitis profile. Mildy hypocalcemia-normal corrected value. vit d level normal. DVT ppx with heparin.
[2018-06-09] MEDS: Acetaminophen 325 MG Tablet PO PRN (12:49)
[2018-06-09 14:31] LABS: Creatine Kinase 110 U/L (26-192)
[2018-06-09] MEDS: ALPRAZolam 0.25 MG Tablet PO PRN (20:48)
[2018-06-09] MEDS: ARIPiprazole 5 MG Tablet PO SCH (20:49)
--- NOTE | 2018-06-09 23:25 | P.PNCA ---
Subjective Interval history: Feeling better overall No fever/chills No chest pain Medications and Allergies Active Medications: Active Medications Acetaminophen (Tylenol) 650 mg PO Q4H PRN PRN Reason: Temp > 100.4 Last Admin: 06/09/18 12:49 Dose: 650 mg Albuterol (Duoneb Neb (Tasha)) 1 ampul NEB Q4HR NEB [facility] Last Admin: 06/09/18 15:30 Dose: Not Given Alprazolam (Xanax) 0.25 mg PO Q8H PRN PRN Reason: ANXIETY Last Admin: 06/09/18 20:48 Dose: 0.25 mg Aripiprazole (Abilify) 5 mg PO HS [facility] Last Admin: 06/09/18 20:49 Dose: 5 mg Carvedilol (Coreg) 6.25 mg PO BID [facility] Last Admin: 06/09/18 20:48 Dose: 6.25 mg Furosemide (Lasix Inj) 40 mg IV.PUSH BID@0900,1800 [facility] Last Admin: 06/08/18 08:35 Dose: Not Given Heparin Sodium (Porcine) (Heparin Inj) 5,000 units SQ Q12H [facility] Last Admin: 06/09/18 18:47 Dose: 5,000 units Vancomycin HCl 1,000 mg/ (Sodium Chloride) 250 mls @ 250 mls/hr IV.SIG Q18H [facility] Last Infusion: 06/09/18 22:05 Dose: Infused Miscellaneous Information ([facility] Ordered Lab Info) 0 each OTHER ONCE ONE Stop: 06/10/18 15:46 Ondansetron HCl (Zofran Inj) 4 mg IV.PUSH Q6H PRN PRN Reason: NAUSEA OR VOMITING Pharmacy Profile Note (Vancomycin Consult Pharmacy) 1 each OTHER UNSCH PRN PRN Reason: Pharmacy to dose Potassium Chloride (K-Dur) 40 meq PO DAILY [facility] Last Admin: 06/09/18 08:08 Dose: 40 meq Sennosides (Senokot) 17.2 mg PO Q12H PRN PRN Reason: Moderate Constipation Sodium Chloride (Ns Flush) 2 ml IV.FLUSH BID [facility] Last Admin: 06/09/18 20:49 Dose: 2 ml Sodium Chloride (Ns Flush) 2 ml IV.FLUSH PRN PRN PRN Reason: FLUSH AFTER USING IV ACCESS Allergies Allergy/AdvReac Type Severity Reaction Status Date / Time penicillin G Allergy Severe Hives Verified 12/12/17 17:36 Home Medications Medication Instructions Recorded Confirmed Type atorvastatin 80 mg PO DAILY 12/12/17 06/06/18 History quetiapine [Seroquel XR] 400 mg PO QPM 12/12/17 06/06/18 History aspirin 81 mg PO DAILY 06/06/18 06/06/18 History benztropine 2 mg PO BID 06/06/18 06/06/18 History duloxetine 60 mg PO DAILY 06/06/18 06/06/18 History metformin 500 mg PO BID 06/06/18 06/06/18 History omeprazole 20 mg PO DAILY 06/06/18 06/06/18 History aripiprazole [Abilifantoni Maintena] See Label Instructions .ROUTE 06/08/18 06/08/18 History .COMPLEX Physical Exam Vital signs: Vital Signs 06/09/18 00:00 06/09/18 01:00 06/09/18 01:52 Temperature 98.5 F Pulse Rate 80 85 92 H Respiratory Rate 18 Blood Pressure 96/55 L Pulse Oximetry 96 06/09/18 04:00 06/09/18 05:00 06/09/18 05:37 Temperature 98.7 F Pulse Rate 73 67 90 Respiratory Rate 18 Blood Pressure 137/65 Pulse Oximetry 97 06/09/18 07:00 06/09/18 08:00 06/09/18 09:00 Temperature 97.2 F L Pulse Rate 71 86 78 Respiratory Rate 20 Blood Pressure 105/57 L Pulse Oximetry 98 06/09/18 10:00 06/09/18 11:00 06/09/18 12:00 Temperature 97.4 F L Pulse Rate 72 84 78 Respiratory Rate 16 Blood Pressure 94/52 L Pulse Oximetry 97 06/09/18 13:00 06/09/18 14:00 06/09/18 15:00 Temperature Pulse Rate 78 72 66 Respiratory Rate Blood Pressure Pulse Oximetry 06/09/18 16:00 06/09/18 17:00 06/09/18 18:00 Temperature 97.5 F L 97 F L Pulse Rate 70 71 65 Respiratory Rate 16 18 Blood Pressure 95/50 L 124/58 L Pulse Oximetry 97 97 06/09/18 20:40 Temperature 97.0 F L Pulse Rate 73 Respiratory Rate 20 Blood Pressure 118/74 Pulse Oximetry 99 Intake & Output 02/19/19 02/19/19 02/20/19 06:59 18:59 06:59 Intake Total 240 / 240 250 / 250 250 / 250 Balance 240 / 240 250 / 250 250 / 250 Weight 49.5 kg 51.5 kg Intake: IV 250 / 250 250 / 250 Vancomycin Inj 1,000 MG In NS 250 / 250 250 / 250 Inj 250 ML @ 250 mls/hr IV.SIG Q18H [facility] Rx#:[id number] Oral 240 / 240 Other: # Voids 2 1 Date of Last Bowel Movement 06/09/18 06/09/18 Weight On Admission 51.5 kg Narrative: GENERAL: NAD, AAOx3 SKIN: Warm and dry. HEAD: Atraumatic. Normocephalic. EYES: Pupils equal and round. No scleral icterus. No injection or drainage. ENT: No nasal bleeding or discharge. Mucous membranes pink and moist. NECK: Trachea midline. No JVD. CARDIOVASCULAR: Irregularly irregular RESPIRATORY: No accessory muscle use. Decreased breath sounds bilaterally GASTROINTESTINAL: Abdomen soft, non-tender, nondistended. Hepatic and splenic margins not palpable. MUSCULOSKELETAL: Extremities without clubbing, cyanosis, or edema. No obvious deformities. NEUROLOGICAL: Awake and alert. No obvious cranial nerve deficits. Motor grossly within normal limits. Five out of 5 muscle strength in the arms and legs. Normal speech. PSYCHIATRIC: Appropriate mood and affect; insight and judgment normal. Results 06/09/18 03:35 06/09/18 03:35 Cardiac Enzymes 06/08/18 06/09/18 06/09/18 Range/Units 23:35 03:35 13:24 Troponin I 0.02 0.03 Less than 0.02 L (0.02-0.05) ng/mL CBC 06/09/18 Range/Units 03:35 WBC 8.9 (4.0-11.0) th/mm3 RBC 4.04 (4.00-5.30) mil/mm3 Hgb 11.4 L (11.6-15.3) gm/dL Hct 33.9 L (35.0-46.0) % Plt Count 210 (150-450) th/mm3 Neut # (Auto) 4.7 (1.8-7.7) th/mm3 Lymph # (Auto) 3.1 (1.0-4.8) th/mm3 [place] # (Auto) 0.5 (0.0-0.9) th/mm3 Eos # (Auto) 0.6 H (0.0-0.4) th/mm3 Baso # (Auto) 0.1 (0.0-0.2) th/mm3 Comprehensive Metabolic Panel 06/08/18 06/08/18 06/09/18 Range/Units 03:34 17:30 03:35 Sodium 142 144 (136-145) meq/L Potassium 3.3 L 5.2 H D 4.1 D (3.5-5.1) meq/L Chloride 104 110 H (98-107) meq/L Carbon Dioxide 32.9 H 29.6 (21.0-32.0) meq/L BUN 16 13 (7-18) mg/dL Creatinine 0.76 0.59 (0.50-1.00) mg/dL Calcium 8.2 L 8.3 L (8.5-10.1) mg/dL Intake and Output 06/09/18 06/09/18 06/10/18 14:59 22:59 06:59 Intake Total 250 / 250 250 / 250 Balance 250 / 250 250 / 250 Intake: IV 250 / 250 250 / 250 Vancomycin Inj 1,000 MG In NS 250 / 250 250 / 250 Inj 250 ML @ 250 mls/hr IV.SIG Q18H [facility] Rx#:[id number] Other: # Voids 1 Date of Last Bowel Movement 06/09/18 06/09/18 Weight 51.5 kg Weight On Admission 51.5 kg Patient Weight 06/10/18 06:59 Weight 51.5 kg Assessment and Plan - Assessment (1) Atrial fibrillation Code(s): I48.91 - Unspecified atrial fibrillation Status: Acute (2) Cardiomyopathy Code(s): I42.9 - Cardiomyopathy, unspecified Status: Acute (3) Bacteremia Code(s): R78.81 - Bacteremia Status: Acute (4) Respiratory failure Code(s): J96.90 - Respiratory failure, unspecified, unspecified whether with hypoxia or hypercapnia Status: Acute - Plan 1) AFib with RVR Currently rates controlled on Coreg CHADSVASc = 4 Discussed DOAC briefly with her, will consider starting 2) Cardiomyopathy EF 30-35% Unsure if new vs old Per patient, Dr. Crisostomo her sole sewer hand has mentioned something to help her heart with rhythms, unsure if she meant PPM vs ICD? Possible tachyarrhythmia induced Will try to call Dr. Crisostomo to get old records, then decide if ischemic evaluation is needed Troponins negative 3) Bacteremia ID consulted No source noted at this time (4) Respiratory failure Qualifiers: Chronicity: unspecified Respiratory failure complication: unspecified whether with hypoxia or hypercapnia Qualified Code(s): J96.90 - Respiratory failure, unspecified, unspecified whether with hypoxia or hypercapnia
[2018-06-10] MEDS: Heparin - SQ 10,000 UNITS/ML Vial SQ SCH ×2 (05:57→18:02)
[2018-06-10] MEDS: ALPRAZolam 0.25 MG Tablet PO PRN ×2 (05:58→21:33)
[2018-06-10] MEDS: Carvedilol 6.25 MG Tablet PO SCH ×2 (08:43→21:33)
--- NOTE | 2018-06-10 13:30 | P.PNIM ---
Subjective Interval history: awake and alert good po no complains of chest pain or shortness of breath states history of corneal ulcer left ey- on visine eye drops no complains of eye pain, no blurring of vision on exam telemetry- in and out of a fib Physical Exam Vital signs: Vital Signs 06/09/18 14:00 06/09/18 15:00 06/09/18 16:00 Temperature 97.5 F L Pulse Rate 72 66 70 Respiratory Rate 16 Blood Pressure 95/50 L Pulse Oximetry 97 06/09/18 17:00 06/09/18 18:00 06/09/18 20:00 Temperature 97 F L Pulse Rate 71 65 98 H Respiratory Rate 18 Blood Pressure 124/58 L Pulse Oximetry 97 06/09/18 20:40 06/09/18 23:21 06/09/18 23:40 Temperature 97.0 F L 97.3 F L Pulse Rate 73 69 79 Respiratory Rate 20 20 16 Blood Pressure 118/74 97/53 L Pulse Oximetry 99 98 06/10/18 00:00 06/10/18 03:00 06/10/18 03:52 Temperature Pulse Rate 119 H 96 H 67 Respiratory Rate 15 Blood Pressure Pulse Oximetry 06/10/18 05:15 06/10/18 08:00 06/10/18 11:22 Temperature 97.3 F L Pulse Rate 77 72 75 Respiratory Rate 20 18 Blood Pressure 101/66 Pulse Oximetry 99 Intake & Output 06/09/18 06/10/18 06/10/18 18:59 06:59 18:59 Intake Total 250 / 250 970 / 970 Balance 250 / 250 970 / 970 Weight 51.5 kg 50.5 kg Intake: IV 250 / 250 250 / 250 Vancomycin Inj 1,000 MG In NS 250 / 250 250 / 250 Inj 250 ML @ 250 mls/hr IV.SIG Q18H [facility] Rx#:[id number] Oral 720 / 720 Other: # Voids 1 5 Date of Last Bowel Movement 06/09/18 06/09/18 # Bowel Movements 0 Weight On Admission 51.5 kg Narrative: awake and alert, no acute distrees anciteric, pupils equal neck supple lungs- no rales, no wheezes regular rhythm abdomen soft, nontender extrmeites no edema Results Labs CBC & Chem 7: 06/09/18 03:35 06/11/18 05:55 Labs: Microbiology 06/09/18 03:47 Blood - Peripheral Aerobic Blood Culture - Preliminary No growth in 1 day 06/09/18 03:47 Blood - Peripheral Anaerobic Blood Culture - Preliminary No growth in 1 day 06/09/18 03:35 Blood - Peripheral Aerobic Blood Culture - Preliminary No growth in 1 day 06/09/18 03:35 Blood - Peripheral Anaerobic Blood Culture - Preliminary No growth in 1 day 06/08/18 15:01 Blood - Peripheral Aerobic Blood Culture - Preliminary No growth in 2 days 06/08/18 15:01 Blood - Peripheral Anaerobic Blood Culture - Preliminary No growth in 2 days 06/08/18 14:56 Blood - Peripheral Aerobic Blood Culture - Preliminary No growth in 2 days 06/08/18 14:56 Blood - Peripheral Anaerobic Blood Culture - Preliminary No growth in 2 days 06/06/18 16:25 Blood - Peripheral Aerobic Blood Culture - Preliminary Staphylococcus coag negative 06/06/18 16:25 Blood - Peripheral Anaerobic Blood Culture - Preliminary Staphylococcus coag negative 06/06/18 16:20 Blood - Peripheral Aerobic Blood Culture - Preliminary Staphylococcus coag negative 06/06/18 16:20 Blood - Peripheral Anaerobic Blood Culture - Preliminary Staphylococcus coag negative Assessment and Plan (1) Atrial fibrillation: Code(s): I48.91 - Unspecified atrial fibrillation Status: Acute (2) Cardiomyopathy: Code(s): I42.9 - Cardiomyopathy, unspecified Status: Acute (3) Bacteremia: Code(s): R78.81 - Bacteremia Status: Acute (4) Respiratory failure: Code(s): J96.90 - Respiratory failure, unspecified, unspecified whether with hypoxia or hypercapnia Status: Acute Plan 68 yo F with 50 pack years cigarette smoking who presented with worsening shortness of breath, found to have desaturated. CXR showing diffuse bilateral interstitial and alveolar patchy opacities. Patient required BIPAP overnight and has now been transitioned to nasal canula. Acute hypoxic respiratory failure-- IMproved Acute systolic heart failure - EF 30-35% Intermittent atrial fibrillation -cxr with patchy infiltrates. BNP mildly elevated to 300. Troponin negative. flu negative. -DUONEBS prn. keep Oxygen by nasal canula, taper as tolerated. prn BIPAP. -Hold Lasix for now, appears euvolemic. -CTA chest-shows cardiomegaly with interstitial edema, small bilateral pleural effusions. -consulted cardiology. Echo- with above EF, novvegetations - Lasix low dose 20 mg daily - continue coreg 6.25 mg bid - started enalapril 2,5 mg daily 06/09 - cardiology ff- consider newer OAC Underlying COPD Heavy smoker - get walk test prior to DC - get PFTs Hisotry of left cornnal ulcer - no pain - Visine eye drops Hypokalemia-- improved - likely in setting of diuresis-replete as needed. - ff BMP - started on losw dose Lasix po Bacteremia-blood cultures from admission reported this morning(06/08) as growing g+ cocci in clusters and chains, in both aerobic and anaerobic bottles. - on IV Vanc. - ID ff\- echo no vegetations Hyperglycemia-monitor closely, check A1C level- pending . keep on SSI. Mildly elevated liver enzymes-likely in the setting of hypoxia. trend, check hepatitis profile- pending . Mildy hypocalcemia-normal corrected value. vit d level normal. DVT ppx with heparin. Progress Note: Quality VTE Deep Vein Thrombosis/Pulmonary Embolism Present on Admission: No _ (1) Atrial fibrillation Qualifiers: Atrial fibrillation type: (2) Respiratory failure Qualifiers: Chronicity: unspecified Respiratory failure complication: unspecified whether with hypoxia or hypercapnia Qualified Code(s): J96.90 - Respiratory failure, unspecified, unspecified whether with hypoxia or hypercapnia (3) Cardiomyopathy Qualifiers: Cardiomyopathy type:
[2018-06-10] MEDS: Furosemide 20 MG Tablet PO SCH (15:20)
[2018-06-10] MEDS ORDERED: Pharmacy Ordered Lab Info OTHER ONE (15:45)
--- NOTE | 2018-06-10 16:37 | P.PNID ---
Subjective Remarks: Patient has no new complaints. She denies chills. Denies chest pain. Denies nausea vomiting. Afebrile. 2D echo noted. The ejection fraction is decreased. Repeat blood culture is pending. Previous blood culture has staph coag negative in 4 bottles. 68-year-old white female who presented to the emergency department with respiratory failure and decreased saturation. The patient was having difficulty breathing and lightheadedness and 911 was called and she was brought to the emergency department for evaluation. She was given BiPAP with improvement. Chest x-ray showed interstitial and alveolar infiltrates bilaterally. Past Medical History: PAST MEDICAL HISTORY: Hypercholesterolemia, schizophrenia, history of skin abscess. Allergies/Adverse Reactions: Allergies penicillin G Allergy (Severe, Verified 12/12/17 17:36) Hives Per pt. Objective Vital Signs 06/09/18 17:00 06/09/18 18:00 06/09/18 20:00 Temperature 97 F L Pulse Rate 71 65 98 H Respiratory Rate 18 Blood Pressure 124/58 L Pulse Oximetry 97 06/09/18 20:40 06/09/18 23:21 06/09/18 23:40 Temperature 97.0 F L 97.3 F L Pulse Rate 73 69 79 Respiratory Rate 20 20 16 Blood Pressure 118/74 97/53 L Pulse Oximetry 99 98 06/10/18 00:00 06/10/18 03:00 06/10/18 03:52 Temperature Pulse Rate 119 H 96 H 67 Respiratory Rate 15 Blood Pressure Pulse Oximetry 06/10/18 05:15 06/10/18 08:00 06/10/18 11:22 Temperature 97.3 F L 97.2 F L Pulse Rate 77 85 75 Respiratory Rate 20 18 18 Blood Pressure 101/66 107/66 Pulse Oximetry 99 99 06/10/18 12:00 Temperature 97.2 F L Pulse Rate 69 Respiratory Rate 18 Blood Pressure 96/54 L Pulse Oximetry 98 Intake & Output 06/09/18 06/10/18 06/10/18 18:59 06:59 18:59 Intake Total 250 / 250 970 / 970 Balance 250 / 250 970 / 970 Weight 51.5 kg 50.5 kg Intake: IV 250 / 250 250 / 250 Vancomycin Inj 1,000 MG In NS 250 / 250 250 / 250 Inj 250 ML @ 250 mls/hr IV.SIG Q18H [facility] Rx#:[id number] Oral 720 / 720 Other: # Voids 1 5 Date of Last Bowel Movement 06/09/18 06/09/18 # Bowel Movements 0 Weight On Admission 51.5 kg 06/06/18 16:25 Blood - Peripheral Aerobic Blood Culture - Final Staphylococcus epidermidis 06/06/18 16:25 Blood - Peripheral Anaerobic Blood Culture - Final Staphylococcus coag negative 06/06/18 16:20 Blood - Peripheral Aerobic Blood Culture - Final Staphylococcus epidermidis 06/06/18 16:20 Blood - Peripheral Anaerobic Blood Culture - Final Staphylococcus coag negative 06/09/18 03:47 Blood - Peripheral Aerobic Blood Culture - Preliminary No growth in 1 day 06/09/18 03:47 Blood - Peripheral Anaerobic Blood Culture - Preliminary No growth in 1 day 06/09/18 03:35 Blood - Peripheral Aerobic Blood Culture - Preliminary No growth in 1 day 06/09/18 03:35 Blood - Peripheral Anaerobic Blood Culture - Preliminary No growth in 1 day 06/08/18 15:01 Blood - Peripheral Aerobic Blood Culture - Preliminary No growth in 2 days 06/08/18 15:01 Blood - Peripheral Anaerobic Blood Culture - Preliminary No growth in 2 days 06/08/18 14:56 Blood - Peripheral Aerobic Blood Culture - Preliminary No growth in 2 days 06/08/18 14:56 Blood - Peripheral Anaerobic Blood Culture - Preliminary No growth in 2 days 06/07/18 06:15 Catheterized Urine Urine Culture - Final 50-100,000 cfu/mL mixed gram positive beatris (probable contaminants) 06/07/18 13:50 Nasal Wash Influenza Types A,B Antigen - Final Negative for FLU A and B antigen Infection due to influenza A or B cannot be ruled out since the antigen present in the sample may be below the detection limit of the test. Lab - Hematology Results 06/09/18 03:35 WBC 8.9 RBC 4.04 Hgb 11.4 L Hct 33.9 L MCV 83.7 MCH 28.1 MCHC 33.6 RDW 17.6 H Plt Count 210 MPV 8.8 Neut % (Auto) 52.8 Lymph % (Auto) 34.6 [place] % (Auto) 5.4 Eos % (Auto) 6.3 H Baso % (Auto) 0.9 Neut # (Auto) 4.7 Lymph # (Auto) 3.1 [place]in # (Auto) 0.5 Eos # (Auto) 0.6 H Baso # (Auto) 0.1 WBC Differential . Differential Comment Auto diff final Lab - Chemistry Results 06/08/18 06/08/18 06/09/18 17:30 23:35 03:35 Sodium 144 Potassium 5.2 H D 4.1 D Chloride 110 H Carbon Dioxide 29.6 Anion Gap 4 L BUN 13 Creatinine 0.59 Estimated GFR Greater than 89 Random Glucose 133 H Calcium 8.3 L Total Creatine Kinase 164 Troponin I 0.02 06/09/18 06/09/18 03:35 13:24 Sodium Potassium Chloride Carbon Dioxide Anion Gap BUN Creatinine Estimated GFR Random Glucose Calcium Total Creatine Kinase 147 110 Troponin I 0.03 Less than 0.02 L Imaging: ITS Impressions Chest X-Ray 06/06/18 16:18 CONCLUSION: Interstitial and alveolar infiltrates bilaterally. Chest CTA 06/07/18 17:45 CONCLUSION: 1. Cardiomegaly with interstitial edema, likely CHF. 2. Small bilateral pleural effusions slightly greater on the right. 3. No evidence for pulmonary embolism. 4. Coronary artery calcifications. Physical Exam: PHYSICAL EXAMINATION: GENERAL: No acute distress. Awake and alert and oriented. HEENT: Head is atraumatic. Extraocular movements are grossly intact. Pupils reactive to light. No icterus. Oropharynx mucosa slightly dry. The patient is edentulous. NECK: Supple without adenopathy. LUNGS: Decreased breath sounds. HEART: Regular rate and rhythm. No murmurs. No rubs. No gallops. ABDOMEN: Bowel sounds present. Soft, no tenderness appreciated. EXTREMITIES: No clubbing, cyanosis, or edema. SKIN: No rash. NEUROLOGIC: No gross focal findings. PSYCHIATRIC: Calm and cooperative. Assessment and Plan - Plan IMPRESSION: Bacteremia due to coag negative staph. No symptomatology suggesting a source of infection. No clear etiology. Atrial fibrillation. RECOMMENDATIONS: 1. Continue to monitor the repeat blood cultures. If the blood cultures are negative I would just complete a 7-day course of the IV vancomycin.
[2018-06-10] MEDS: Vancomycin Inj 1,000 MG in Sodium Chlor 0.9% Inj 250 ML IV.SIG SCH (17:31)
[2018-06-10] MEDS ORDERED: VISINE EYE-LEFT SCH (18:00)
[2018-06-10] MEDS: Artificial Tears Opth Drops 15 ML Bottle LEFT EYE SCH (21:32)
[2018-06-10] MEDS: ARIPiprazole 5 MG Tablet PO SCH (21:33)
--- NOTE | 2018-06-10 23:38 | P.PNCA ---
Subjective Interval history: No events overnight No complaints Medications and Allergies Active Medications: Active Medications Acetaminophen (Tylenol) 650 mg PO Q4H PRN PRN Reason: Temp > 100.4 Last Admin: 06/09/18 12:49 Dose: 650 mg Alprazolam (Xanax) 0.25 mg PO Q8H PRN PRN Reason: ANXIETY Last Admin: 06/10/18 21:33 Dose: 0.25 mg Aripiprazole (Abilify) 5 mg PO HS [facility] Last Admin: 06/10/18 21:33 Dose: 5 mg Artificial Tears (Tears Naturale Opth Drops) 1 drop LEFT EYE TID [facility] Last Admin: 06/10/18 21:32 Dose: 1 drop Carvedilol (Coreg) 6.25 mg PO BID [facility] Last Admin: 06/10/18 21:33 Dose: 6.25 mg Furosemide (Lasix Inj) 40 mg IV.PUSH BID@0900,1800 [facility] Last Admin: 06/08/18 08:35 Dose: Not Given Furosemide (Lasix) 20 mg PO DAILY [facility] Last Admin: 06/10/18 15:20 Dose: 20 mg Heparin Sodium (Porcine) (Heparin Inj) 5,000 units SQ Q12H [facility] Last Admin: 06/10/18 18:02 Dose: 5,000 units Vancomycin HCl 1,000 mg/ (Sodium Chloride) 250 mls @ 250 mls/hr IV.SIG Q12H [facility] Miscellaneous Information ([facility] Ordered Lab Info) 0 each OTHER ONCE ONE Stop: 06/12/18 17:46 Ondansetron HCl (Zofran Inj) 4 mg IV.PUSH Q6H PRN PRN Reason: NAUSEA OR VOMITING Pharmacy Profile Note (Vancomycin Consult Pharmacy) 1 each OTHER UNSCH PRN PRN Reason: Pharmacy to dose Potassium Chloride (K-Dur) 40 meq PO DAILY [facility] Last Admin: 06/10/18 08:43 Dose: 40 meq Sennosides (Senokot) 17.2 mg PO Q12H PRN PRN Reason: Moderate Constipation Sodium Chloride (Ns Flush) 2 ml IV.FLUSH BID [facility] Last Admin: 06/10/18 21:33 Dose: 2 ml Sodium Chloride (Ns Flush) 2 ml IV.FLUSH PRN PRN PRN Reason: FLUSH AFTER USING IV ACCESS Allergies Allergy/AdvReac Type Severity Reaction Status Date / Time penicillin G Allergy Severe Hives Verified 12/12/17 17:36 Home Medications Medication Instructions Recorded Confirmed Type atorvastatin 80 mg PO DAILY 12/12/17 06/06/18 History quetiapine [Seroquel XR] 400 mg PO QPM 12/12/17 06/06/18 History aspirin 81 mg PO DAILY 06/06/18 06/06/18 History benztropine 2 mg PO BID 06/06/18 06/06/18 History duloxetine 60 mg PO DAILY 06/06/18 06/06/18 History metformin 500 mg PO BID 06/06/18 06/06/18 History omeprazole 20 mg PO DAILY 06/06/18 06/06/18 History aripiprazole [Abilifantoni Maintena] See Label Instructions .ROUTE 06/08/18 06/08/18 History .COMPLEX Physical Exam Vital signs: Vital Signs 06/09/18 23:40 06/10/18 00:00 06/10/18 03:00 Temperature Pulse Rate 79 119 H 96 H Respiratory Rate 16 Blood Pressure Pulse Oximetry 06/10/18 03:52 06/10/18 05:15 06/10/18 08:00 Temperature 97.3 F L 97.2 F L Pulse Rate 67 77 85 Respiratory Rate 15 20 18 Blood Pressure 101/66 107/66 Pulse Oximetry 99 99 06/10/18 11:22 06/10/18 12:00 06/10/18 16:00 Temperature 97.2 F L 97.6 F Pulse Rate 75 69 72 Respiratory Rate 18 18 18 Blood Pressure 96/54 L 115/58 L Pulse Oximetry 98 98 06/10/18 19:50 Temperature 97.9 F Pulse Rate 83 Respiratory Rate 16 Blood Pressure 97/55 L Pulse Oximetry 96 Intake & Output 06/10/18 06/10/18 06/11/18 06:59 18:59 06:59 Intake Total 970 / 970 250 / 250 Balance 970 / 970 250 / 250 Weight 50.5 kg Intake: IV 250 / 250 250 / 250 Vancomycin Inj 1,000 MG In NS 250 / 250 250 / 250 Inj 250 ML @ 250 mls/hr IV.SIG Q18H [facility] Rx#:[id number] Oral 720 / 720 Other: # Voids 5 5 Date of Last Bowel Movement 06/09/18 06/09/18 # Bowel Movements 0 Narrative: GENERAL: NAD, AAOx3 SKIN: Warm and dry. HEAD: Atraumatic. Normocephalic. EYES: Pupils equal and round. No scleral icterus. No injection or drainage. ENT: No nasal bleeding or discharge. Mucous membranes pink and moist. NECK: Trachea midline. No JVD. CARDIOVASCULAR: Irregularly irregular RESPIRATORY: No accessory muscle use. Decreased breath sounds bilaterally GASTROINTESTINAL: Abdomen soft, non-tender, nondistended. Hepatic and splenic margins not palpable. MUSCULOSKELETAL: Extremities without clubbing, cyanosis, or edema. No obvious deformities. NEUROLOGICAL: Awake and alert. No obvious cranial nerve deficits. Motor grossly within normal limits. Five out of 5 muscle strength in the arms and legs. Normal speech. PSYCHIATRIC: Appropriate mood and affect; insight and judgment normal. Results 06/09/18 03:35 06/09/18 03:35 Cardiac Enzymes 06/08/18 06/09/18 06/09/18 Range/Units 23:35 03:35 13:24 Troponin I 0.02 0.03 Less than 0.02 L (0.02-0.05) ng/mL CBC 06/09/18 Range/Units 03:35 WBC 8.9 (4.0-11.0) th/mm3 RBC 4.04 (4.00-5.30) mil/mm3 Hgb 11.4 L (11.6-15.3) gm/dL Hct 33.9 L (35.0-46.0) % Plt Count 210 (150-450) th/mm3 Neut # (Auto) 4.7 (1.8-7.7) th/mm3 Lymph # (Auto) 3.1 (1.0-4.8) th/mm3 Dukes # (Auto) 0.5 (0.0-0.9) th/mm3 Eos # (Auto) 0.6 H (0.0-0.4) th/mm3 Baso # (Auto) 0.1 (0.0-0.2) th/mm3 Comprehensive Metabolic Panel 06/09/18 Range/Units 03:35 Sodium 144 (136-145) meq/L Potassium 4.1 D (3.5-5.1) meq/L Chloride 110 H (98-107) meq/L Carbon Dioxide 29.6 (21.0-32.0) meq/L BUN 13 (7-18) mg/dL Creatinine 0.59 (0.50-1.00) mg/dL Calcium 8.3 L (8.5-10.1) mg/dL Intake and Output 06/10/18 06/10/18 06/11/18 14:59 22:59 06:59 Intake Total 250 / 250 Balance 250 / 250 Intake: IV 250 / 250 Vancomycin Inj 1,000 MG In NS 250 / 250 Inj 250 ML @ 250 mls/hr IV.SIG Q18H [facility] Rx#:[id number] Other: # Voids 5 Date of Last Bowel Movement 06/09/18 Assessment and Plan - Assessment (1) Atrial fibrillation Code(s): I48.91 - Unspecified atrial fibrillation Status: Acute (2) Cardiomyopathy Code(s): I42.9 - Cardiomyopathy, unspecified Status: Acute (3) Bacteremia Code(s): R78.81 - Bacteremia Status: Acute (4) Respiratory failure Code(s): J96.90 - Respiratory failure, unspecified, unspecified whether with hypoxia or hypercapnia Status: Acute - Plan 1) AFib with RVR Currently rates controlled on Coreg CHADSVASc = 4 Discussed DOAC briefly with her, will consider starting 2) Cardiomyopathy EF 30-35% Unsure if new vs old Per patient, Dr. Crisostomo her bracelet former has mentioned something to help her heart with rhythms, unsure if she meant PPM vs ICD? Possible tachyarrhythmia induced Will try to call Dr. Crisostomo to get old records, then decide if ischemic evaluation is needed Attempted to contact Dr. Crisostomo, will try again tomorrow Troponins negative 3) Bacteremia ID consulted No source noted at this time (4) Respiratory failure Qualifiers: Chronicity: unspecified Respiratory failure complication: unspecified whether with hypoxia or hypercapnia Qualified Code(s): J96.90 - Respiratory failure, unspecified, unspecified whether with hypoxia or hypercapnia
[2018-06-11] MEDS: Vancomycin Inj 1,000 MG in Sodium Chlor 0.9% Inj 250 ML IV.SIG SCH ×2 (06:01→17:02)
[2018-06-11] MEDS: Heparin - SQ 10,000 UNITS/ML Vial SQ SCH ×2 (06:04→17:45)
[2018-06-11 07:47] LABS: Anion Gap 8 meq/L (5-15); Blood Urea Nitrogen 14 mg/dL (7-18); Calcium 8.8 mg/dL (8.5-10.1); Carbon Dioxide 25.4 meq/L (21.0-32.0); Chloride 106 meq/L (98-107); Glomerular Filtration Rate Greater Than 89 mL/min (>89); Glucose,Random 100 mg/dL (74-106); Potassium 5.4 meq/L (3.5-5.1); Sodium 139 meq/L (136-145)
[2018-06-11] MEDS: Furosemide 20 MG Tablet PO SCH (09:36)
[2018-06-11] MEDS: Carvedilol 6.25 MG Tablet PO SCH ×2 (09:36→20:18)
[2018-06-11] MEDS: Artificial Tears Opth Drops 15 ML Bottle LEFT EYE SCH ×3 (09:37→17:01)
--- NOTE | 2018-06-11 13:44 | P.PNIM ---
Subjective Interval history: no chest pain complaining of pain left eye- thoday- more redness Physical Exam Vital signs: Vital Signs 06/10/18 15:57 06/10/18 16:00 06/10/18 19:50 Temperature 97.6 F 97.9 F Pulse Rate 65 72 83 Respiratory Rate 15 18 16 Blood Pressure 115/58 L 97/55 L Pulse Oximetry 98 96 06/10/18 20:00 06/11/18 00:00 06/11/18 04:00 Temperature 97.9 F 97.3 F L Pulse Rate 73 64 59 L Respiratory Rate 16 18 Blood Pressure 147/69 H 114/56 L Pulse Oximetry 100 98 06/11/18 08:00 06/11/18 12:00 Temperature 98.2 F 98.4 F Pulse Rate 69 70 Respiratory Rate 17 15 Blood Pressure 132/88 93/58 L Pulse Oximetry 98 98 Intake & Output 06/10/18 06/11/18 06/11/18 18:59 06:59 18:59 Intake Total 250 / 250 250 / 250 Balance 250 / 250 250 / 250 Weight 49 kg Intake: IV 250 / 250 250 / 250 Vancomycin Inj 1,000 MG In NS 250 / 250 250 / 250 Inj 250 ML @ 250 mls/hr IV.SIG Q12H [facility] Rx#:[id number] Other: # Voids 5 2 Date of Last Bowel Movement 06/09/18 06/10/18 Narrative: awake and alert mno distress anciteric, left ye- mild injection neck supple lungs- no rales regular rhythm occa. PAcs abdomen soft extremites no edema Results Labs CBC & Chem 7: 06/09/18 03:35 06/13/18 08:00 Labs: Microbiology 06/09/18 03:47 Blood - Peripheral Aerobic Blood Culture - Preliminary No growth in 2 days 06/09/18 03:47 Blood - Peripheral Anaerobic Blood Culture - Preliminary No growth in 2 days 06/09/18 03:35 Blood - Peripheral Aerobic Blood Culture - Preliminary No growth in 2 days 06/09/18 03:35 Blood - Peripheral Anaerobic Blood Culture - Preliminary No growth in 2 days 06/08/18 15:01 Blood - Peripheral Aerobic Blood Culture - Preliminary No growth in 3 days 06/08/18 15:01 Blood - Peripheral Anaerobic Blood Culture - Preliminary No growth in 3 days 06/08/18 14:56 Blood - Peripheral Aerobic Blood Culture - Preliminary No growth in 3 days 06/08/18 14:56 Blood - Peripheral Anaerobic Blood Culture - Preliminary No growth in 3 days 06/06/18 16:25 Blood - Peripheral Aerobic Blood Culture - Final Staphylococcus epidermidis 06/06/18 16:25 Blood - Peripheral Anaerobic Blood Culture - Final Staphylococcus coag negative 06/06/18 16:20 Blood - Peripheral Aerobic Blood Culture - Final Staphylococcus epidermidis 06/06/18 16:20 Blood - Peripheral Anaerobic Blood Culture - Final Staphylococcus coag negative Assessment and Plan (1) Atrial fibrillation: Code(s): I48.91 - Unspecified atrial fibrillation Status: Acute (2) Cardiomyopathy: Code(s): I42.9 - Cardiomyopathy, unspecified Status: Acute (3) Bacteremia: Code(s): R78.81 - Bacteremia Status: Acute (4) Respiratory failure: Code(s): J96.90 - Respiratory failure, unspecified, unspecified whether with hypoxia or hypercapnia Status: Acute Plan 68 yo F with 50 pack years cigarette smoking who presented with worsening shortness of breath, found to have desaturated. CXR showing diffuse bilateral interstitial and alveolar patchy opacities. Patient required BIPAP overnight and has now been transitioned to nasal canula. Acute hypoxic respiratory failure-- IMproved Acute systolic heart failure - EF 30-35% Intermittent atrial fibrillation -cxr with patchy infiltrates. BNP mildly elevated to 300. Troponin negative. flu negative. -DUONEBS prn. keep Oxygen by nasal canula, taper as tolerated. prn BIPAP. -Hold Lasix for now, appears euvolemic. -CTA chest-shows cardiomegaly with interstitial edema, small bilateral pleural effusions. -consulted cardiology. Echo- with above EF, no vegetations - Lasix low dose 20 mg daily - continue coreg 6.25 mg bid - cardiology ff- consider newer OAC - for stress testing- d/w Dr. Wilson Left eye pain and injection- history fo left corneal ulcer- more pain and injectiojn today - was told to use Visine - sees Dr. Ramirez as OP - will consult her for evaluation Underlying COPD Heavy smoker - get walk test prior to DC - get PFTs Hypokalemia-- improved - likely in setting of diuresis-replete as needed. - ff BMP - started on losw dose Lasix po Bacteremia-blood cultures from admission reported this morning(06/08) as growing g+ cocci in clusters and chains, in both aerobic and anaerobic bottles. - on IV Vanc. - started on 06/08 - ID ff echo no vegetations Hyperglycemia-monitor closely, check A1C level- pending . keep on SSI. Mildly elevated liver enzymes-likely in the setting of hypoxia. trend, check hepatitis profile- pending . Mildy hypocalcemia-normal corrected value. vit d level normal. DVT ppx with heparin. Progress Note: Quality VTE Deep Vein Thrombosis/Pulmonary Embolism Present on Admission: No _ (1) Atrial fibrillation Qualifiers: Atrial fibrillation type: (2) Respiratory failure Qualifiers: Chronicity: unspecified Respiratory failure complication: unspecified whether with hypoxia or hypercapnia Qualified Code(s): J96.90 - Respiratory failure, unspecified, unspecified whether with hypoxia or hypercapnia (3) Cardiomyopathy Qualifiers: Cardiomyopathy type:
[2018-06-11] MEDS: ALPRAZolam 0.25 MG Tablet PO PRN (16:03)
[2018-06-11] MEDS: ARIPiprazole 5 MG Tablet PO SCH (20:18)
[2018-06-12] MEDS ORDERED: Regadenoson Inj 0.4 MG/5 ML Syringe IV.PUSH ONE (00:17)
--- NOTE | 2018-06-12 00:17 | P.PNCA ---
Subjective Interval history: No events overnight Feels better Medications and Allergies Active Medications: Active Medications Acetaminophen (Tylenol) 650 mg PO Q4H PRN PRN Reason: Temp > 100.4 Last Admin: 06/09/18 12:49 Dose: 650 mg Alprazolam (Xanax) 0.25 mg PO Q8H PRN PRN Reason: ANXIETY Last Admin: 06/11/18 16:03 Dose: 0.25 mg Aripiprazole (Abilify) 5 mg PO HS [facility] Last Admin: 06/11/18 20:18 Dose: 5 mg Artificial Tears (Tears Naturale Opth Drops) 1 drop LEFT EYE TID [facility] Last Admin: 06/11/18 17:01 Dose: 1 drop Carvedilol (Coreg) 6.25 mg PO BID [facility] Last Admin: 06/11/18 20:18 Dose: 6.25 mg Furosemide (Lasix Inj) 40 mg IV.PUSH BID@0900,1800 [facility] Last Admin: 06/08/18 08:35 Dose: Not Given Furosemide (Lasix) 20 mg PO DAILY [facility] Last Admin: 06/11/18 09:36 Dose: 20 mg Heparin Sodium (Porcine) (Heparin Inj) 5,000 units SQ Q12H [facility] Last Admin: 06/11/18 17:45 Dose: 5,000 units Vancomycin HCl 1,000 mg/ (Sodium Chloride) 250 mls @ 250 mls/hr IV.SIG Q12H [facility] Last Infusion: 06/11/18 18:05 Dose: Infused Miscellaneous Information ([facility] Ordered Lab Info) 0 each OTHER ONCE ONE Stop: 06/12/18 17:46 Ondansetron HCl (Zofran Inj) 4 mg IV.PUSH Q6H PRN PRN Reason: NAUSEA OR VOMITING Pharmacy Profile Note (Vancomycin Consult Pharmacy) 1 each OTHER UNSCH PRN PRN Reason: Pharmacy to dose Potassium Chloride (K-Dur) 40 meq PO DAILY [facility] Last Admin: 06/11/18 09:36 Dose: 40 meq Sennosides (Senokot) 17.2 mg PO Q12H PRN PRN Reason: Moderate Constipation Sodium Chloride (Ns Flush) 2 ml IV.FLUSH BID [facility] Last Admin: 06/11/18 20:18 Dose: 2 ml Sodium Chloride (Ns Flush) 2 ml IV.FLUSH PRN PRN PRN Reason: FLUSH AFTER USING IV ACCESS Allergies Allergy/AdvReac Type Severity Reaction Status Date / Time penicillin G Allergy Severe Hives Verified 12/12/17 17:36 Home Medications Medication Instructions Recorded Confirmed Type atorvastatin 80 mg PO DAILY 12/12/17 06/06/18 History quetiapine [Seroquel XR] 400 mg PO QPM 12/12/17 06/06/18 History aspirin 81 mg PO DAILY 06/06/18 06/06/18 History benztropine 2 mg PO BID 06/06/18 06/06/18 History duloxetine 60 mg PO DAILY 06/06/18 06/06/18 History metformin 500 mg PO BID 06/06/18 06/06/18 History omeprazole 20 mg PO DAILY 06/06/18 06/06/18 History aripiprazole [Abilify Maintena] See Label Instructions .ROUTE 06/08/18 06/08/18 History .COMPLEX Physical Exam Vital signs: Vital Signs 06/11/18 04:00 06/11/18 08:00 06/11/18 12:00 Temperature 97.3 F L 98.2 F 98.4 F Pulse Rate 59 L 69 63 Respiratory Rate 18 17 15 Blood Pressure 114/56 L 132/88 93/58 L Pulse Oximetry 98 98 98 06/11/18 16:00 06/11/18 16:11 06/11/18 20:00 Temperature 97.7 F Pulse Rate 77 76 Respiratory Rate 16 Blood Pressure 98/60 L 106/54 L Pulse Oximetry 95 Intake & Output 06/11/18 06/11/18 06/12/18 06:59 18:59 06:59 Intake Total 1120 / 1120 Balance 1120 / 1120 Weight 49 kg Intake: IV 500 / 500 Vancomycin Inj 1,000 MG In NS 500 / 500 Inj 250 ML @ 250 mls/hr IV.SIG Q12H [facility] Rx#:[id number] Oral 620 / 620 Other: # Voids 2 3 Date of Last Bowel Movement 06/10/18 06/11/18 Narrative: GENERAL: NAD, AAOx3 SKIN: Warm and dry. HEAD: Atraumatic. Normocephalic. EYES: Pupils equal and round. No scleral icterus. No injection or drainage. ENT: No nasal bleeding or discharge. Mucous membranes pink and moist. NECK: Trachea midline. No JVD. CARDIOVASCULAR: Irregularly irregular RESPIRATORY: No accessory muscle use. Decreased breath sounds bilaterally GASTROINTESTINAL: Abdomen soft, non-tender, nondistended. Hepatic and splenic margins not palpable. MUSCULOSKELETAL: Extremities without clubbing, cyanosis, or edema. No obvious deformities. NEUROLOGICAL: Awake and alert. No obvious cranial nerve deficits. Motor grossly within normal limits. Five out of 5 muscle strength in the arms and legs. Normal speech. PSYCHIATRIC: Appropriate mood and affect; insight and judgment normal. Results 06/09/18 03:35 06/11/18 05:55 Comprehensive Metabolic Panel 06/11/18 Range/Units 05:55 Sodium 139 (136-145) meq/L Potassium 5.4 H (3.5-5.1) meq/L Chloride 106 (98-107) meq/L Carbon Dioxide 25.4 (21.0-32.0) meq/L BUN 14 (7-18) mg/dL Creatinine 0.59 (0.50-1.00) mg/dL Calcium 8.8 (8.5-10.1) mg/dL Intake and Output 06/11/18 06/11/18 06/12/18 14:59 22:59 06:59 Intake Total 250 / 250 870 / 870 Balance 250 / 250 870 / 870 Intake: IV 250 / 250 250 / 250 Vancomycin Inj 1,000 MG In NS 250 / 250 250 / 250 Inj 250 ML @ 250 mls/hr IV.SIG Q12H [facility] Rx#:[id number] Oral 620 / 620 Other: # Voids 3 Date of Last Bowel Movement 06/11/18 Assessment and Plan - Assessment (1) Atrial fibrillation Code(s): I48.91 - Unspecified atrial fibrillation Status: Acute (2) Cardiomyopathy Code(s): I42.9 - Cardiomyopathy, unspecified Status: Acute (3) Bacteremia Code(s): R78.81 - Bacteremia Status: Acute (4) Respiratory failure Code(s): J96.90 - Respiratory failure, unspecified, unspecified whether with hypoxia or hypercapnia Status: Acute - Plan 1) AFib with RVR Currently rates controlled on Coreg CHADSVASc = 4 Discussed DOAC briefly with her, will consider starting 2) Cardiomyopathy EF 30-35% Possible tachyarrhythmia induced Discussed with Dr. Crisostomo Previous EF 40-45% Due to drop in EF, will plan on stress test in the morning 3) Bacteremia ID consulted No source noted at this time Repeat blood cultures negative (4) Respiratory failure Qualifiers: Chronicity: unspecified Respiratory failure complication: unspecified whether with hypoxia or hypercapnia Qualified Code(s): J96.90 - Respiratory failure, unspecified, unspecified whether with hypoxia or hypercapnia
[2018-06-12] MEDS: Vancomycin Inj 1,000 MG in Sodium Chlor 0.9% Inj 250 ML IV.SIG SCH ×2 (05:17→19:30)
[2018-06-12] MEDS: Heparin - SQ 10,000 UNITS/ML Vial SQ SCH (06:22)
[2018-06-12] MEDS: Artificial Tears Opth Drops 15 ML Bottle LEFT EYE SCH ×4 (08:15→21:21)
[2018-06-12] MEDS: Carvedilol 6.25 MG Tablet PO SCH ×2 (08:16→21:22)
[2018-06-12] MEDS: Furosemide 20 MG Tablet PO SCH (08:16)
--- NOTE | 2018-06-12 11:15 | NM ---
EXAM DATE: 06/12/2018 10:57 AM EST AGE/SEX: 68 years / Female INDICATIONS:Congestive heart failure. Atrial fibrillation Mid chest pressure with shortness of breath for one day. CLINICAL DATA: This is the patient's initial encounter. Patient reports that signs and symptoms have been present for 1 day and indicates a pain score of 3/10. MEDICAL/SURGICAL HISTORY: Diabetes mellitus type II. Hypertension. None. COMPARISON: No prior exams available for comparison. No external comparison. DOSE: 8.7 mCi Tc 99m Myoview at rest 25.9 mCi [id number] at stress 0.4 mg Lexiscan STRESS SYMPTOMS: None. EJECTION FRACTION: 29 % TECHNIQUE: The patient underwent pharmacologic stress with infusion of prescribed dose. Continuous ECG tracing was monitored during stress. Gated SPECT imaging was performed after stress and conventi onal SPECT imaging was performed at rest. The examination was performed on a SPECT/CT scanner, both attenuation and non-corrected datasets were reviewed. FINDINGS: Distribution: The maximum perfused segment at stress is in the anteroseptal wall. Perfusion Study: The pattern of perfusion at stress demonstrates lack of perfusion to the lateral w all which is fixed during rest . There is bowel activity which limits evaluation of posterior basal wall, however a fixed defect is also present involving the inferior wall without any significant isch emia. Gated Study: There is global hypokinesis . The ejection fraction is calculated at 29%. RISK CATEGORY: Low (<1% Annual Mortality Rate) CONCLUSION: 1. 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 Electronically signed by: Heidi Holland MD Board Certified Radiologist 06/12/2018 11:14 AM EST
--- NOTE | 2018-06-12 13:02 | P.PNIM ---
Subjective Interval history: still with left eye pain redness less no visual difficulties or blurring up and ambulating no complains of chest pain or shortness of breath Physical Exam Vital signs: Vital Signs 06/11/18 16:00 06/11/18 16:11 06/11/18 20:00 Temperature 97.7 F Pulse Rate 77 76 Respiratory Rate 16 Blood Pressure 98/60 L 106/54 L Pulse Oximetry 95 06/12/18 00:00 06/12/18 04:00 06/12/18 08:00 Temperature 97.7 F 97.5 F L 98.0 F Pulse Rate 69 65 64 Respiratory Rate 17 18 14 Blood Pressure 106/66 130/58 L 108/59 L Pulse Oximetry 95 94 L 96 Intake & Output 06/11/18 06/12/18 06/12/18 18:59 06:59 18:59 Intake Total 1120 / 1120 250 / 250 Balance 1120 / 1120 250 / 250 Weight 49 kg Intake: IV 500 / 500 250 / 250 Vancomycin Inj 1,000 MG In NS 500 / 500 250 / 250 Inj 250 ML @ 250 mls/hr IV.SIG Q12H [facility] Rx#:[id number] Oral 620 / 620 0 / 0 Other: # Voids 3 3 Date of Last Bowel Movement 06/11/18 Narrative: awake and alert, no acute distress left eye- still miild injectionneck supple lungs- clear rirregularly irregular rhythm abdomen soft, nontender extremites no edema gait stedy Results Labs CBC & Chem 7: 06/09/18 03:35 06/13/18 08:00 Labs: Microbiology 06/09/18 03:47 Blood - Peripheral Aerobic Blood Culture - Preliminary No growth in 3 days 06/09/18 03:47 Blood - Peripheral Anaerobic Blood Culture - Preliminary No growth in 3 days 06/09/18 03:35 Blood - Peripheral Aerobic Blood Culture - Preliminary No growth in 3 days 06/09/18 03:35 Blood - Peripheral Anaerobic Blood Culture - Preliminary No growth in 3 days 06/08/18 15:01 Blood - Peripheral Aerobic Blood Culture - Preliminary No growth in 4 days 06/08/18 15:01 Blood - Peripheral Anaerobic Blood Culture - Preliminary No growth in 4 days 06/08/18 14:56 Blood - Peripheral Aerobic Blood Culture - Preliminary No growth in 4 days 06/08/18 14:56 Blood - Peripheral Anaerobic Blood Culture - Preliminary No growth in 4 days Imaging Imaging: Impressions Myocardial Perfusion Scan Nuc Med 06/12/18 00:00 CONCLUSION: 1. 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 Assessment and Plan (1) Atrial fibrillation: Code(s): I48.91 - Unspecified atrial fibrillation Status: Acute (2) Cardiomyopathy: Code(s): I42.9 - Cardiomyopathy, unspecified Status: Acute (3) Bacteremia: Code(s): R78.81 - Bacteremia Status: Acute (4) Respiratory failure: Code(s): J96.90 - Respiratory failure, unspecified, unspecified whether with hypoxia or hypercapnia Status: Acute Plan 68 yo F with 50 pack years cigarette smoking who presented with worsening shortness of breath, found to have desaturated. CXR showing diffuse bilateral interstitial and alveolar patchy opacities. Patient required BIPAP overnight and has now been transitioned to nasal canula. Acute hypoxic respiratory failure-- IMproved Acute systolic heart failure - EF 30-35% Atrial fibrillation- rate controlled -cxr with patchy infiltrates. BNP mildly elevated to 300. Troponin negative. flu negative. -DUONEBS prn. keep Oxygen by nasal canula, taper as tolerated. prn BIPAP. -CTA chest-shows cardiomegaly with interstitial edema, small bilateral pleural effusions. -seen by Dr tapia - stress test confirms low ER- no sichemia - Echo- with above EF, no vegetations - Lasix low dose 20 mg daily - continue coreg 6.25 mg bid - started enalapril 2,5 mg daily 06/09 - start Eliquis 5 mg po bid- d/w patient and Cardiology Left eye pain and injection- history fo left corneal ulcer- more pain and injectiojn today - was told to use Visine - seen by Dr milligan- appreciate recommendation Underlying COPD Heavy smoker - get walk test prior to DC - get PFTs Hypokalemia-- improved- now with elevated K - hold KCL- recheck BMP now - Lasix 20 mg dialy Bacteremia-blood cultures from admission reported this morning(06/08) as growing g+ cocci in clusters and chains, in both aerobic and anaerobic bottles. - on IV Vanc. - started on 06/08- d.w Dr. Kinney- total 7 days- 2 more days - ID ff echo no vegetations repeat cultures negative Hyperglycemia-monitor closely, check A1C level- pending . keep on SSI. Mildly elevated liver enzymes-likely in the setting of hypoxia. trend, check hepatitis profile- pending . Mildy hypocalcemia-normal corrected value. vit d level normal. DVT ppx - will be placed on eliquis DC hepatin Progress Note: Quality VTE Deep Vein Thrombosis/Pulmonary Embolism Present on Admission: No _ (1) Atrial fibrillation Qualifiers: Atrial fibrillation type: (2) Respiratory failure Qualifiers: Chronicity: unspecified Respiratory failure complication: unspecified whether with hypoxia or hypercapnia Qualified Code(s): J96.90 - Respiratory failure, unspecified, unspecified whether with hypoxia or hypercapnia (3) Cardiomyopathy Qualifiers: Cardiomyopathy type:
--- NOTE | 2018-06-12 14:00 | P.CON ---
History of Present Illness Service: Ophthalmology Consult date: 06/12/18 Reason for Consult: left eye redness Primary Care Provider: Emmett Funez MD History of Present Illness: 68 yo F presenting to ED with shortness of breath. She is well known to me - treated her for a corneal ulcer on her left eye last year which healed. She was supposed to get follow up with an Oculoplastic surgeon for her entropion of her left lower eyelid but never went because she was scared of getting surgery. Today she is complaining of left eye redness and irritation. 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 - Medical History Medical History: Medical History (Last Reviewed 06/11/18 @ 09:59 by Moy Vargas) High cholesterol Hx of abscess of skin and subcutaneous tissue Schizophrenia - Family History Family History: Family History (Last Reviewed 06/06/18 @ 18:38 by Moy Armenta MD) Other Hypertension - Tobacco History Second Hand Smoke Exposure: Yes Tobacco Use In Past 30 Days: Yes Smoking Status: Current every day smoker Tobacco Type: Cigarettes - Alcohol History How Often Do You Have a Drink Containing Alcohol: Never - Substance Use History Substance History: No History of Abuse - Travel History Recent Travel in the [place] Within the Last 8 Weeks: No Recent Travel Out of the Country Within the Last 8 Weeks: No - Immunization History Tetanus Immunization: <5 Years Hx Influenza Vaccine This Season: No Medications and Allergies Active Medications: Active Medications Acetaminophen (Tylenol) 650 mg PO Q4H PRN PRN Reason: Temp > 100.4 Last Admin: 06/09/18 12:49 Dose: 650 mg Albuterol (Albuterol Neb (Prn)) 2.5 mg NEB UNSCH PRN PRN Reason: SHORTNESS OF BREATH/WHEEZING Albuterol (Duoneb Neb (Prn)) 1 ampul NEB UNSCH PRN PRN Reason: SHORTNESS OF BREATH/WHEEZING Alprazolam (Xanax) 0.25 mg PO Q8H PRN PRN Reason: ANXIETY Last Admin: 06/11/18 16:03 Dose: 0.25 mg Apixaban (Eliquis) 5 mg PO BID [facility] Aripiprazole (Abilify) 5 mg PO HS [facility] Last Admin: 06/11/18 20:18 Dose: 5 mg Artificial Tears (Tears Naturale Opth Drops) 1 drop LEFT EYE TID [facility] Last Admin: 06/12/18 13:09 Dose: 1 drop Carvedilol (Coreg) 6.25 mg PO BID [facility] Last Admin: 06/12/18 08:16 Dose: 6.25 mg Furosemide (Lasix Inj) 40 mg IV.PUSH BID@0900,1800 [facility] Last Admin: 06/08/18 08:35 Dose: Not Given Furosemide (Lasix) 20 mg PO DAILY [facility] Last Admin: 06/12/18 08:16 Dose: 20 mg Vancomycin HCl 1,000 mg/ (Sodium Chloride) 250 mls @ 250 mls/hr IV.SIG Q12H [facility] Last Infusion: 06/12/18 06:17 Dose: Infused Miscellaneous Information ([facility] Ordered Lab Info) 0 each OTHER ONCE ONE Stop: 06/12/18 17:46 Ondansetron HCl (Zofran Inj) 4 mg IV.PUSH Q6H PRN PRN Reason: NAUSEA OR VOMITING Pharmacy Profile Note (Vancomycin Consult Pharmacy) 1 each OTHER UNSCH PRN PRN Reason: Pharmacy to dose Sennosides (Senokot) 17.2 mg PO Q12H PRN PRN Reason: Moderate Constipation Sodium Chloride (Ns Flush) 2 ml IV.FLUSH BID [facility] Last Admin: 06/12/18 08:15 Dose: 2 ml Sodium Chloride (Ns Flush) 2 ml IV.FLUSH PRN PRN PRN Reason: FLUSH AFTER USING IV ACCESS Allergies Allergy/AdvReac Type Severity Reaction Status Date / Time penicillin G Allergy Severe Hives Verified 12/12/17 17:36 Home Medications Medication Instructions Recorded Confirmed Type atorvastatin 80 mg PO DAILY 12/12/17 06/06/18 History quetiapine [Seroquel XR] 400 mg PO QPM 12/12/17 06/06/18 History aspirin 81 mg PO DAILY 06/06/18 06/06/18 History benztropine 2 mg PO BID 06/06/18 06/06/18 History duloxetine 60 mg PO DAILY 06/06/18 06/06/18 History metformin 500 mg PO BID 06/06/18 06/06/18 History omeprazole 20 mg PO DAILY 06/06/18 06/06/18 History aripiprazole [Abilinicole Mainronaldoa] See Label Instructions .ROUTE 06/08/18 06/08/18 History .COMPLEX Physical Exam Vital signs: Vital Signs 06/11/18 16:00 06/11/18 16:11 06/11/18 20:00 Temperature 97.7 F Pulse Rate 77 76 Respiratory Rate 16 Blood Pressure 98/60 L 106/54 L Pulse Oximetry 95 06/12/18 00:00 06/12/18 04:00 06/12/18 08:00 Temperature 97.7 F 97.5 F L 98.0 F Pulse Rate 69 65 64 Respiratory Rate 17 18 14 Blood Pressure 106/66 130/58 L 108/59 L Pulse Oximetry 95 94 L 96 06/12/18 12:00 Temperature 97.7 F Pulse Rate 67 Respiratory Rate 15 Blood Pressure 107/58 L Pulse Oximetry 97 Intake & Output 06/11/18 06/12/18 06/12/18 18:59 06:59 18:59 Intake Total 1120 / 1120 250 / 250 Balance 1120 / 1120 250 / 250 Weight 49 kg Intake: IV 500 / 500 250 / 250 Vancomycin Inj 1,000 MG In NS 500 / 500 250 / 250 Inj 250 ML @ 250 mls/hr IV.SIG Q12H [facility] Rx#:[id number] Oral 620 / 620 0 / 0 Other: # Voids 3 3 Date of Last Bowel Movement 06/11/18 - Detailed Eye Exam Comments: Va cc at near OD 20/50, OS 20/50 EOM full OU, no diplopia CVF full OU Pupils 2-1 no APD OU IOP normal to palpation OU Anterior exam OD - normal eyelid, C/S W&Q, K clear, AC deep, pupil round, lens clear OS - LLL entropion, conj injection, severe PEE, AC deep, pupil round, lens clear Results - Labs CBC & Chem 7: 06/09/18 03:35 06/11/18 05:55 - Imaging Impressions Myocardial Perfusion Scan Nuc Med 06/12/18 00:00 CONCLUSION: 1. 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 Assessment and Plan - Assessment (1) Entropion of left lower eyelid Code(s): H02.005 - Unspecified entropion of left lower eyelid Status: Acute Plan: Start TobraDex ointment QID OS and artificial tears QID OS. Follow up with outpatient Oculoplastic surgeon when discharged for surgical treatment of left lower eyelid.
--- NOTE | 2018-06-12 14:41 | P.PNID ---
Subjective Remarks: Patient is sitting in bedside chair and has no complaints. Daughter at bedside notes that she has lost a lot of weight over the past year. Despite eating well. Daughter reports that she gets UTI often. She denies chills. Denies chest pain. Denies nausea, vomiting. sweats. Afebrile. 2D echo noted. The ejection fraction is decreased. Repeat blood culture has no growth. Previous blood culture has staph coag negative in 4 bottles. 68-year-old white female who presented to the emergency department with respiratory failure and decreased saturation. The patient was having difficulty breathing and lightheadedness and 911 was called and she was brought to the emergency department for evaluation. She was given BiPAP with improvement. Chest x-ray showed interstitial and alveolar infiltrates bilaterally. Past Medical History: PAST MEDICAL HISTORY: Hypercholesterolemia, schizophrenia, history of skin abscess. Allergies/Adverse Reactions: Allergies penicillin G Allergy (Severe, Verified 12/12/17 17:36) Hives Per pt. Objective Vital Signs 06/11/18 16:00 06/11/18 16:11 06/11/18 20:00 Temperature 97.7 F Pulse Rate 77 76 Respiratory Rate 16 Blood Pressure 98/60 L 106/54 L Pulse Oximetry 95 06/12/18 00:00 06/12/18 04:00 06/12/18 08:00 Temperature 97.7 F 97.5 F L 98.0 F Pulse Rate 69 65 64 Respiratory Rate 17 18 14 Blood Pressure 106/66 130/58 L 108/59 L Pulse Oximetry 95 94 L 96 06/12/18 12:00 Temperature 97.7 F Pulse Rate 67 Respiratory Rate 15 Blood Pressure 107/58 L Pulse Oximetry 97 Intake & Output 06/11/18 06/12/18 06/12/18 18:59 06:59 18:59 Intake Total 1120 / 1120 250 / 250 Balance 1120 / 1120 250 / 250 Weight 49 kg Intake: IV 500 / 500 250 / 250 Vancomycin Inj 1,000 MG In NS 500 / 500 250 / 250 Inj 250 ML @ 250 mls/hr IV.SIG Q12H [facility] Rx#:[id number] Oral 620 / 620 0 / 0 Other: # Voids 3 3 Date of Last Bowel Movement 06/11/18 06/09/18 03:47 Blood - Peripheral Aerobic Blood Culture - Preliminary No growth in 3 days 06/09/18 03:47 Blood - Peripheral Anaerobic Blood Culture - Preliminary No growth in 3 days 06/09/18 03:35 Blood - Peripheral Aerobic Blood Culture - Preliminary No growth in 3 days 06/09/18 03:35 Blood - Peripheral Anaerobic Blood Culture - Preliminary No growth in 3 days 06/08/18 15:01 Blood - Peripheral Aerobic Blood Culture - Preliminary No growth in 4 days 06/08/18 15:01 Blood - Peripheral Anaerobic Blood Culture - Preliminary No growth in 4 days 06/08/18 14:56 Blood - Peripheral Aerobic Blood Culture - Preliminary No growth in 4 days 06/08/18 14:56 Blood - Peripheral Anaerobic Blood Culture - Preliminary No growth in 4 days 06/06/18 16:25 Blood - Peripheral Aerobic Blood Culture - Final Staphylococcus epidermidis 06/06/18 16:25 Blood - Peripheral Anaerobic Blood Culture - Final Staphylococcus coag negative 06/06/18 16:20 Blood - Peripheral Aerobic Blood Culture - Final Staphylococcus epidermidis 06/06/18 16:20 Blood - Peripheral Anaerobic Blood Culture - Final Staphylococcus coag negative Lab - Chemistry Results 06/11/18 05:55 Sodium 139 Potassium 5.4 H Chloride 106 Carbon Dioxide 25.4 Anion Gap 8 BUN 14 Creatinine 0.59 Estimated GFR Greater than 89 Random Glucose 100 Calcium 8.8 Imaging: ITS Impressions Chest X-Ray 06/06/18 16:18 CONCLUSION: Interstitial and alveolar infiltrates bilaterally. Chest CTA 06/07/18 17:45 CONCLUSION: 1. Cardiomegaly with interstitial edema, likely CHF. 2. Small bilateral pleural effusions slightly greater on the right. 3. No evidence for pulmonary embolism. 4. Coronary artery calcifications. Myocardial Perfusion Scan Nuc Med 06/12/18 00:00 CONCLUSION: 1. 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 Physical Exam: PHYSICAL EXAMINATION: GENERAL: No acute distress. Awake and alert and oriented. HEENT: Head is atraumatic. Extraocular movements are grossly intact. Pupils reactive to light. No icterus. Oropharynx mucosa slightly dry. The patient is edentulous. NECK: Supple without adenopathy. LUNGS: clear breath sounds. HEART: Regular rate and rhythm. No murmurs. No rubs. No gallops. ABDOMEN: Bowel sounds present. Soft, no tenderness appreciated. EXTREMITIES: No clubbing, cyanosis, or edema. Muscle wasting at extremities. SKIN: No rash. NEUROLOGIC: Non focal. PSYCHIATRIC: Calm and cooperative. Assessment and Plan - Plan IMPRESSION: Bacteremia due to coag negative staph. No symptomatology suggesting a source of infection. No clear etiology. Atrial fibrillation. Cardiology following. RECOMMENDATIONS: Give IV Vancomycin through 06/14/17 and if no new fever she can be discharged from ID standpoint. Please call for further input if needed. Discussed with patient and her daughter.
[2018-06-12] MEDS ORDERED: Pharmacy Ordered Lab Info OTHER ONE (17:45)
[2018-06-12 19:24] LABS: Anion Gap 9 meq/L (5-15); Blood Urea Nitrogen 25 mg/dL (7-18); Calcium 8.7 mg/dL (8.5-10.1); Carbon Dioxide 25.6 meq/L (21.0-32.0); Chloride 104 meq/L (98-107); Glomerular Filtration Rate Greater Than 89 mL/min (>89); Glucose,Random 135 mg/dL (74-106); Potassium 4.3 meq/L (3.5-5.1); Sodium 139 meq/L (136-145); Vancomycin,Trough 17.4 mcg/mL (5.0-10.0)
[2018-06-12] MEDS: ARIPiprazole 5 MG Tablet PO SCH (21:21)
[2018-06-12 22:03] LABS: Hemoglobin A1c 6.7 % (4.3-6.0)
--- NOTE | 2018-06-12 23:23 | P.PNCA ---
Subjective Interval history: No events overnight Only complaint is left eye pain Medications and Allergies Active Medications: Active Medications Acetaminophen (Tylenol) 650 mg PO Q4H PRN PRN Reason: Temp > 100.4 Last Admin: 06/09/18 12:49 Dose: 650 mg Albuterol (Albuterol Neb (Prn)) 2.5 mg NEB UNSCH PRN PRN Reason: SHORTNESS OF BREATH/WHEEZING Albuterol (Duoneb Neb (Prn)) 1 ampul NEB UNSCH PRN PRN Reason: SHORTNESS OF BREATH/WHEEZING Alprazolam (Xanax) 0.25 mg PO Q8H PRN PRN Reason: ANXIETY Last Admin: 06/11/18 16:03 Dose: 0.25 mg Apixaban (Eliquis) 5 mg PO BID [facility] Last Admin: 06/12/18 21:22 Dose: 5 mg Aripiprazole (Abilify) 5 mg PO HS [facility] Last Admin: 06/12/18 21:21 Dose: 5 mg Artificial Tears (Tears Naturale Opth Drops) 1 drop LEFT EYE QID [facility] Last Admin: 06/12/18 21:21 Dose: 1 drop Carvedilol (Coreg) 6.25 mg PO BID [facility] Last Admin: 06/12/18 21:22 Dose: 6.25 mg Furosemide (Lasix Inj) 40 mg IV.PUSH BID@0900,1800 [facility] Last Admin: 06/08/18 08:35 Dose: Not Given Furosemide (Lasix) 20 mg PO DAILY [facility] Last Admin: 06/12/18 08:16 Dose: 20 mg Vancomycin HCl 1,000 mg/ (Sodium Chloride) 250 mls @ 250 mls/hr IV.SIG Q12H [facility] Last Infusion: 06/12/18 21:22 Dose: Infused Miscellaneous Information ([facility] Ordered Lab Info) 0 each OTHER ONCE ONE Stop: 06/13/18 17:46 Ondansetron HCl (Zofran Inj) 4 mg IV.PUSH Q6H PRN PRN Reason: NAUSEA OR VOMITING Pharmacy Profile Note (Vancomycin Consult Pharmacy) 1 each OTHER UNSCH PRN PRN Reason: Pharmacy to dose Sennosides (Senokot) 17.2 mg PO Q12H PRN PRN Reason: Moderate Constipation Sodium Chloride (Ns Flush) 2 ml IV.FLUSH BID [facility] Last Admin: 06/12/18 21:22 Dose: 2 ml Sodium Chloride (Ns Flush) 2 ml IV.FLUSH PRN PRN PRN Reason: FLUSH AFTER USING IV ACCESS Tobramycin/Dexamethasone (Tobradex Opth Oint) 1 applicatio LEFT EYE Q6HR [facility] Last Admin: 06/12/18 17:36 Dose: 1 applicatio Allergies Allergy/AdvReac Type Severity Reaction Status Date / Time penicillin G Allergy Severe Hives Verified 12/12/17 17:36 Home Medications Medication Instructions Recorded Confirmed Type atorvastatin 80 mg PO DAILY 12/12/17 06/06/18 History quetiapine [Seroquel XR] 400 mg PO QPM 12/12/17 06/06/18 History aspirin 81 mg PO DAILY 06/06/18 06/06/18 History benztropine 2 mg PO BID 06/06/18 06/06/18 History duloxetine 60 mg PO DAILY 06/06/18 06/06/18 History metformin 500 mg PO BID 06/06/18 06/06/18 History omeprazole 20 mg PO DAILY 06/06/18 06/06/18 History aripiprazole [Abilify Maintena] See Label Instructions .ROUTE 06/08/18 06/08/18 History .COMPLEX Physical Exam Vital signs: Vital Signs 06/12/18 00:00 06/12/18 04:00 06/12/18 08:00 Temperature 97.7 F 97.5 F L 98.0 F Pulse Rate 69 65 64 Respiratory Rate 17 18 14 Blood Pressure 106/66 130/58 L 108/59 L Pulse Oximetry 95 94 L 96 06/12/18 12:00 06/12/18 16:00 Temperature 97.7 F 98.2 F Pulse Rate 67 65 Respiratory Rate 15 14 Blood Pressure 107/58 L 109/57 L Pulse Oximetry 97 97 Intake & Output 06/12/18 06/12/18 06/13/18 06:59 18:59 06:59 Intake Total 250 / 250 250 / 250 Balance 250 / 250 250 / 250 Weight 49 kg Intake: IV 250 / 250 250 / 250 Vancomycin Inj 1,000 MG In NS 250 / 250 250 / 250 Inj 250 ML @ 250 mls/hr IV.SIG Q12H [facility] Rx#:[id number] Oral 0 / 0 Other: # Voids 3 Date of Last Bowel Movement 06/11/18 Narrative: GENERAL: NAD, AAOx3 SKIN: Warm and dry. HEAD: Atraumatic. Normocephalic. EYES: Pupils equal and round. No scleral icterus. No injection or drainage. ENT: No nasal bleeding or discharge. Mucous membranes pink and moist. NECK: Trachea midline. No JVD. CARDIOVASCULAR: Irregularly irregular RESPIRATORY: No accessory muscle use. Decreased breath sounds bilaterally GASTROINTESTINAL: Abdomen soft, non-tender, nondistended. Hepatic and splenic margins not palpable. MUSCULOSKELETAL: Extremities without clubbing, cyanosis, or edema. No obvious deformities. NEUROLOGICAL: Awake and alert. No obvious cranial nerve deficits. Motor grossly within normal limits. Five out of 5 muscle strength in the arms and legs. Normal speech. PSYCHIATRIC: Appropriate mood and affect; insight and judgment normal. Results 06/09/18 03:35 06/12/18 18:45 Comprehensive Metabolic Panel 06/11/18 06/12/18 Range/Units 05:55 18:45 Sodium 139 139 (136-145) meq/L Potassium 5.4 H 4.3 D (3.5-5.1) meq/L Chloride 106 104 (98-107) meq/L Carbon Dioxide 25.4 25.6 (21.0-32.0) meq/L BUN 14 25 H (7-18) mg/dL Creatinine 0.59 0.66 (0.50-1.00) mg/dL Calcium 8.8 8.7 (8.5-10.1) mg/dL Intake and Output 06/12/18 06/12/18 06/13/18 14:59 22:59 06:59 Intake Total 250 / 250 Balance 250 / 250 Intake: IV 250 / 250 Vancomycin Inj 1,000 MG In NS 250 / 250 Inj 250 ML @ 250 mls/hr IV.SIG Q12H [facility] Rx#:[id number] - Imaging and Cardiology Imaging: Impressions Myocardial Perfusion Scan Nuc Med 06/12/18 00:00 CONCLUSION: 1. 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 Assessment and Plan - Assessment (1) Atrial fibrillation Code(s): I48.91 - Unspecified atrial fibrillation Status: Acute (2) Cardiomyopathy Code(s): I42.9 - Cardiomyopathy, unspecified Status: Acute (3) Bacteremia Code(s): R78.81 - Bacteremia Status: Acute (4) Respiratory failure Code(s): J96.90 - Respiratory failure, unspecified, unspecified whether with hypoxia or hypercapnia Status: Acute - Plan 1) AFib with RVR Currently rates controlled on Coreg CHADSVASc = 4 Discuss[address]AC Plan to place on Eliquis 5mg BID (weight low, but only risk factor for lower dose) 2) Cardiomyopathy EF 30-35% Possible tachyarrhythmia induced Previous EF 40-45% Stress test showing previous infarction similar to previous stress test per Dr. Crisostomo, no ischemia Con't medical management Not a candidate for ICD therapy at this time as not on optimal medical therapy Started on Coreg, blood pressure borderline low so tough to start on ZAHRA-I If blood pressure better, would start on low dose ZAHRA-I Follow up echo in 3 months 3) Bacteremia ID consulted No source noted at this time Repeat blood cultures negative 4) Eye pain To see Ophthalmology 5) No further cardiovascular work up Stable for discharge Follow up with Dr. Crisostomo (4) Respiratory failure Qualifiers: Chronicity: unspecified Respiratory failure complication: unspecified whether with hypoxia or hypercapnia Qualified Code(s): J96.90 - Respiratory failure, unspecified, unspecified whether with hypoxia or hypercapnia
[2018-06-13] MEDS: Vancomycin Inj 1,000 MG in Sodium Chlor 0.9% Inj 250 ML IV.SIG SCH ×2 (06:10→17:44)
[2018-06-13] MEDS: Furosemide 20 MG Tablet PO SCH (08:35)
[2018-06-13] MEDS: Carvedilol 6.25 MG Tablet PO SCH ×2 (08:36→23:01)
[2018-06-13] MEDS: Artificial Tears Opth Drops 15 ML Bottle LEFT EYE SCH ×4 (08:36→23:01)
[2018-06-13 11:40] LABS: Glomerular Filtration Rate Greater Than 89 mL/min (>89)
--- NOTE | 2018-06-13 14:01 | P.PNIM ---
Subjective [facility]val [facility]: [facility] left eye pain less, redness improved seen with daughter patient up and ambulating very interactive no fever Physical Exam Vital signs: Vital Signs 06/12/18 16:00 06/12/18 20:00 06/12/18 22:00 Temperature 98.2 F 97.8 F Pulse Rate 65 67 83 Respiratory Rate 14 16 Blood Pressure 109/57 L 98/54 L Pulse Oximetry 97 06/13/18 00:00 06/13/18 02:00 06/13/18 04:00 Temperature 98.3 F 98.3 F Pulse Rate 62 62 62 Respiratory Rate 19 19 Blood Pressure 104/63 104/63 Pulse Oximetry 98 98 06/13/18 08:36 06/13/18 08:40 06/13/18 12:00 Temperature 97.5 F L Pulse Rate 62 60 62 Respiratory Rate 18 Blood Pressure 126/82 Pulse Oximetry 100 06/13/18 12:58 Temperature 97.2 F L Pulse Rate 66 Respiratory Rate 18 Blood Pressure 114/56 L Pulse Oximetry 96 Intake & Output 06/12/18 06/13/18 06/13/18 18:59 06:59 18:59 Intake Total 570 / 570 250 / 250 Balance 570 / 570 250 / 250 Intake: IV 250 / 250 250 / 250 Vancomycin Inj 1,000 MG In NS 250 / 250 250 / 250 Inj 250 ML @ 250 mls/hr IV.SIG Q12H [facility] Rx#:[id number] Oral 320 / 320 Other: # Voids 2 Date of Last Bowel Movement 06/11/18 06/11/18 Narrative: awake and alert no distress anciteric, left eye- less injected no discharge lungs-clear regular rhythm abdomensoft, nontender extremites no edema gait steady Results Labs CBC & Chem 7: 06/09/18 03:35 06/13/18 08:00 Labs: Microbiology 06/09/18 03:47 Blood - Peripheral Aerobic Blood Culture - Preliminary No growth in 4 days 06/09/18 03:47 Blood - Peripheral Anaerobic Blood Culture - Preliminary No growth in 4 days 06/09/18 03:35 Blood - Peripheral Aerobic Blood Culture - Preliminary No growth in 4 days 06/09/18 03:35 Blood - Peripheral Anaerobic Blood Culture - Preliminary No growth in 4 days 06/08/18 15:01 Blood - Peripheral Aerobic Blood Culture - Final No growth in 5 days 06/08/18 15:01 Blood - Peripheral Anaerobic Blood Culture - Final No growth in 5 days 06/08/18 14:56 Blood - Peripheral Aerobic Blood Culture - Final No growth in 5 days 06/08/18 14:56 Blood - Peripheral Anaerobic Blood Culture - Final No growth in 5 days Assessment and Plan (1) Atrial fibrillation: Code(s): I48.91 - Unspecified atrial fibrillation Status: Acute (2) Cardiomyopathy: Code(s): I42.9 - Cardiomyopathy, unspecified Status: Acute (3) Bacteremia: Code(s): R78.81 - Bacteremia Status: Acute (4) Respiratory failure: Code(s): J96.90 - Respiratory failure, unspecified, unspecified whether with hypoxia or hypercapnia Status: Acute Plan 68 yo F with 50 pack years cigarette smoking who presented with worsening shortness of breath, found to have desaturated. CXR showing diffuse bilateral interstitial and alveolar patchy opacities. Patient required BIPAP overnight and has now been transitioned to nasal canula. Acute hypoxic respiratory failure-- IMproved Acute systolic heart failure - EF 30-35% Atrial fibrillation- rate controlled -cxr with patchy infiltrates. BNP mildly elevated to 300. Troponin negative. flu negative. -DUONEBS prn. keep Oxygen by nasal canula, taper as tolerated. prn BIPAP. -CTA chest-shows cardiomegaly with interstitial edema, small bilateral pleural effusions. -seen by Dr tapia - stress test confirms low ER- no ichemia - Echo- with above EF, no vegetations - Lasix low dose 20 mg daily - continue coreg 6.25 mg bid - enalapril 2,5 mg daily - Eliquis 5 mg po bid- Left eye pain and injection- history fo left corneal ulcer- more pain and injectiojn today - was told to use Visine - seen by Dr milligan- -on tobradex ointment qid Underlying COPD Heavy smoker - get walk test prior to DC - get PFTs Hypokalemia-- improved- now with elevated K - hold KCL- recheck BMP now - on Lasix 20 mg dialy Bacteremia-blood cultures from admission reported this morning(06/08) as growing g+ cocci in clusters and chains, in both aerobic and anaerobic bottles. - on IV Vanc. - started on 06/08- d.w Dr. Diontfraid- total 7 days- 2 more days- till 06/14 - ID ff echo no vegetations repeat cultures negative Hyperglycemia-monitor closely, check A1C level-- good keep on SSI. Mildly elevated liver enzymes-likely in the setting of hypoxia. trend, check hepatitis profile- pending . Mildy hypocalcemia-normal corrected value. vit d level normal. DVT ppx - will be placed on eliquis DC hepatin Progress Note: Quality VTE Deep Vein Thrombosis/Pulmonary Embolism Present on Admission: No _ (1) Atrial fibrillation Qualifiers: Atrial fibrillation type: (2) Respiratory failure Qualifiers: Chronicity: unspecified Respiratory failure complication: unspecified whether with hypoxia or hypercapnia Qualified Code(s): J96.90 - Respiratory failure, unspecified, unspecified whether with hypoxia or hypercapnia (3) Cardiomyopathy Qualifiers: Cardiomyopathy type:
[2018-06-13] MEDS: Lisinopril 5 MG Tablet PO SCH (14:58)
[2018-06-13] MEDS ORDERED: Pharmacy Ordered Lab Info OTHER ONE (17:45)
[2018-06-13] MEDS: ARIPiprazole 5 MG Tablet PO SCH (23:01)
[2018-06-14] MEDS: Vancomycin Inj 1,000 MG in Sodium Chlor 0.9% Inj 250 ML IV.SIG SCH ×2 (05:57→17:38)
[2018-06-14] MEDS: Carvedilol 6.25 MG Tablet PO SCH ×2 (08:56→21:24)
[2018-06-14] MEDS: Lisinopril 5 MG Tablet PO SCH (08:56)
[2018-06-14] MEDS: Artificial Tears Opth Drops 15 ML Bottle LEFT EYE SCH ×4 (08:57→21:24)
[2018-06-14] MEDS: Furosemide 20 MG Tablet PO SCH (08:57)
--- NOTE | 2018-06-14 12:54 | P.PNIM ---
Subjective Interval history: awake and alert no fever or chills still states having left eye pain- erythema improved- no blurring of vision Physical Exam Vital signs: Vital Signs 06/13/18 12:58 06/13/18 16:00 06/13/18 17:17 Temperature 97.2 F L 97.8 F Pulse Rate 66 81 89 Respiratory Rate 18 18 Blood Pressure 114/56 L 137/63 Pulse Oximetry 96 98 06/13/18 20:00 06/14/18 00:00 06/14/18 04:00 Temperature 98.3 F 97.8 F 98.4 F Pulse Rate 91 H 80 66 Respiratory Rate 15 16 15 Blood Pressure 112/66 110/88 127/68 Pulse Oximetry 95 95 99 06/14/18 08:40 06/14/18 08:51 Temperature 98.8 F Pulse Rate 73 68 Respiratory Rate 18 Blood Pressure 109/56 L Pulse Oximetry 98 Intake & Output 06/13/18 06/14/18 06/14/18 18:59 06:59 18:59 Intake Total 250 / 250 250 / 250 250 / 250 Balance 250 / 250 250 / 250 250 / 250 Weight 50.5 kg Intake: IV 250 / 250 250 / 250 250 / 250 Vancomycin Inj 1,000 MG In NS 250 / 250 250 / 250 250 / 250 Inj 250 ML @ 250 mls/hr IV.SIG Q12H [facility] Rx#:[id number] Other: # Voids 6 2 Date of Last Bowel Movement 06/11/18 06/11/18 # Bowel Movements 1 Narrative: awake and alert, no ditress left eye- mild erythema marked decrease erythema, dry no drainage,eom FULL RANGE OF MOTION lungs-clear regular rhythm abdomens soft, nontender extrmeites no edmea gait steady Results Labs CBC & Chem 7: 06/09/18 03:35 06/14/18 14:31 Labs: Microbiology 06/09/18 03:47 Blood - Peripheral Aerobic Blood Culture - Final No growth in 5 days 06/09/18 03:47 Blood - Peripheral Anaerobic Blood Culture - Final No growth in 5 days 06/09/18 03:35 Blood - Peripheral Aerobic Blood Culture - Final No growth in 5 days 06/09/18 03:35 Blood - Peripheral Anaerobic Blood Culture - Final No growth in 5 days 06/08/18 15:01 Blood - Peripheral Aerobic Blood Culture - Final No growth in 5 days 06/08/18 15:01 Blood - Peripheral Anaerobic Blood Culture - Final No growth in 5 days 06/08/18 14:56 Blood - Peripheral Aerobic Blood Culture - Final No growth in 5 days 06/08/18 14:56 Blood - Peripheral Anaerobic Blood Culture - Final No growth in 5 days Assessment and Plan (1) Atrial fibrillation: Code(s): I48.91 - Unspecified atrial fibrillation Status: Acute (2) Cardiomyopathy: Code(s): I42.9 - Cardiomyopathy, unspecified Status: Acute (3) Bacteremia: Code(s): R78.81 - Bacteremia Status: Acute (4) Respiratory failure: Code(s): J96.90 - Respiratory failure, unspecified, unspecified whether with hypoxia or hypercapnia Status: Acute Plan 68 yo F with 50 pack years cigarette smoking who presented with worsening shortness of breath, found to have desaturated. CXR showing diffuse bilateral interstitial and alveolar patchy opacities. Patient required BIPAP overnight and has now been transitioned to nasal canula. Acute hypoxic respiratory failure-- IMproved Acute systolic heart failure - EF 30-35% Atrial fibrillation- rate controlled -cxr with patchy infiltrates. BNP mildly elevated to 300. Troponin negative. flu negative. -DUONEBS prn. keep Oxygen by nasal canula, taper as tolerated. prn BIPAP. -CTA chest-shows cardiomegaly with interstitial edema, small bilateral pleural effusions. -seen by Dr tapia - stress test confirms low ER- no ichemia - Echo- with above EF, no vegetations - Lasix low dose 20 mg daily - continue coreg 6.25 mg bid - enalapril 2,5 mg daily - Eliquis 5 mg po bid- -will get a walk test today Left eye pain and injection- history fo left corneal ulcer- - was told to use Visine - seen by Dr milligan-- recommendations appreicated -on tobradex eye ointment qid + artifical tears - OP ff up with her on DC Underlying COPD Heavy smoker - get walk test prior to DC Hypokalemia-- improved- - on Lasix 20 mg dialy Bacteremia-blood cultures from admission reported this morning(06/08) as growing g+ cocci in clusters and chains, in both aerobic and anaerobic bottles. - on IV Vanc. - started on 06/08- d.hunter Kinney- total 7 days- 2 more days- till 06/14 - ID ff echo no vegetations repeat cultures negative Hyperglycemia-monitor closely, check A1C level-- good keep on SSI. Mildly elevated liver enzymes-likely in the setting of hypoxia. trend, check hepatitis profile- pending . Mildy hypocalcemia-normal corrected value. vit d level normal. DVT ppx - on eliquis Cm consult for DC planning home tomorrow Progress Note: Quality VTE Deep Vein Thrombosis/Pulmonary Embolism Present on Admission: No _ (1) Atrial fibrillation Qualifiers: Atrial fibrillation type: (2) Respiratory failure Qualifiers: Chronicity: unspecified Respiratory failure complication: unspecified whether with hypoxia or hypercapnia Qualified Code(s): J96.90 - Respiratory failure, unspecified, unspecified whether with hypoxia or hypercapnia (3) Cardiomyopathy Qualifiers: Cardiomyopathy type:
[2018-06-14 15:00] LABS: Calcium 7.9 mg/dL (8.5-10.1); Carbon Dioxide 29.8 meq/L (21.0-32.0); Potassium 4.1 meq/L (3.5-5.1)
[2018-06-14] MEDS: traMADol/Acetaminophen 37.5/325 MG Tablet PO PRN (18:26)
[2018-06-14] MEDS: ARIPiprazole 5 MG Tablet PO SCH (21:23)
[2018-06-15] MEDS: traMADol/Acetaminophen 37.5/325 MG Tablet PO PRN ×2 (00:25→08:18)
[2018-06-15] MEDS ORDERED: Pharmacy Ordered Lab Info OTHER ONE (05:45)
[2018-06-15] MEDS: Vancomycin Inj 1,000 MG in Sodium Chlor 0.9% Inj 250 ML IV.SIG SCH (06:18)
[2018-06-15] MEDS: Lisinopril 5 MG Tablet PO SCH (08:17)
[2018-06-15] MEDS: Carvedilol 6.25 MG Tablet PO SCH (08:18)
[2018-06-15] MEDS: Furosemide 20 MG Tablet PO SCH (08:18)
[2018-06-15] MEDS: Artificial Tears Opth Drops 15 ML Bottle LEFT EYE SCH ×2 (08:19→13:07)
[2018-06-15 08:35] VITALS: RESP 18
--- NOTE | 2018-06-15 14:14 | P.PNIM ---
Subjective Interval history: up and ambulating no chest pain or shortness of breath left eye pain- still some pain and mild erythema- no discharge Physical Exam Vital signs: Vital Signs 06/14/18 15:28 06/14/18 16:00 06/14/18 17:05 Temperature 98.1 F Pulse Rate 75 75 Respiratory Rate 18 Blood Pressure 102/67 Pulse Oximetry 99 Pulse Oximetry [Exertion on Room Air] 99 Pulse Oximetry [Resting on Room Air] 98 06/14/18 20:00 06/15/18 00:00 06/15/18 03:56 Temperature 98.0 F 98.9 F Pulse Rate 77 69 Respiratory Rate 15 15 15 Blood Pressure 90/55 L 110/68 Pulse Oximetry 98 98 Pulse Oximetry [Exertion on Room Air] Pulse Oximetry [Resting on Room Air] 06/15/18 04:00 06/15/18 08:00 06/15/18 12:00 Temperature 98.4 F 97.5 F L Pulse Rate 70 65 Respiratory Rate 15 18 Blood Pressure 106/56 L 102/61 90/60 L Pulse Oximetry 99 97 Pulse Oximetry [Exertion on Room Air] Pulse Oximetry [Resting on Room Air] Intake & Output 06/14/18 06/15/18 06/15/18 18:59 06:59 18:59 Intake Total 500 / 500 480 / 480 250 / 250 Balance 500 / 500 480 / 480 250 / 250 Weight 50.4 kg Intake: IV 500 / 500 250 / 250 Vancomycin Inj 1,000 MG In NS 500 / 500 250 / 250 Inj 250 ML @ 250 mls/hr IV.SIG Q12H [facility] Rx#:[id number] Oral 480 / 480 Other: # Voids 4 3 Date of Last Bowel Movement 06/11/18 # Bowel Movements 1 Narrative: awake and alert no distress anicteric left eye- mild erythema, no dischaerge neck supplelungs-clear regular rhythm abdomensoft, nontender extrmeies chasity sintia neuro- up and ambulating no deficits Results Labs CBC & Chem 7: 06/09/18 03:35 06/14/18 14:31 Labs: Microbiology 06/09/18 03:47 Blood - Peripheral Aerobic Blood Culture - Final No growth in 5 days 06/09/18 03:47 Blood - Peripheral Anaerobic Blood Culture - Final No growth in 5 days 06/09/18 03:35 Blood - Peripheral Aerobic Blood Culture - Final No growth in 5 days 06/09/18 03:35 Blood - Peripheral Anaerobic Blood Culture - Final No growth in 5 days Assessment and Plan (1) Atrial fibrillation: Code(s): I48.91 - Unspecified atrial fibrillation Status: Acute (2) Cardiomyopathy: Code(s): I42.9 - Cardiomyopathy, unspecified Status: Acute (3) Bacteremia: Code(s): R78.81 - Bacteremia Status: Acute (4) Respiratory failure: Code(s): J96.90 - Respiratory failure, unspecified, unspecified whether with hypoxia or hypercapnia Status: Acute Plan 68 yo F with 50 pack years cigarette smoking who presented with worsening shortness of breath, found to have desaturated. CXR showing diffuse bilateral interstitial and alveolar patchy opacities. Patient required BIPAP overnight and has now been transitioned to nasal canula. Acute hypoxic respiratory failure-- IMproved Acute systolic heart failure - EF 30-35% Atrial fibrillation- rate controlled -cxr with patchy infiltrates. BNP mildly elevated to 300. Troponin negative. flu negative. -DUONEBS prn. keep Oxygen by nasal canula, taper as tolerated. prn BIPAP. -CTA chest-shows cardiomegaly with interstitial edema, small bilateral pleural effusions. -seen by Dr tapia - stress test confirms low ER- no ichemia - Echo- with above EF, no vegetations - Lasix low dose 20 mg daily - continue coreg 6.25 mg bid - enalapril 2,5 mg daily - Eliquis 5 mg po bid- -will get a walk test today - may not need it Left eye pain and injection- history fo left corneal ulcer- - was told to use Visine - seen by Dr milligan-- recommendations appreicated -on tobradex eye ointment qid + artifical tears - OP ff up with her on DC-n 2 days Underlying COPD Heavy smoker - get walk test prior to DC Hypokalemia-- improved- - on Lasix 20 mg dialy Bacteremia-blood cultures from admission reported this morning(06/08) as growing g+ cocci in clusters and chains, in both aerobic and anaerobic bottles. - on IV Vanc. - started on 06/08- d.w Dr. Kinney- total 7 days- 2 more days- till 06/14 - ID ff echo no vegetations repeat cultures negative s/p IV vanco course Hyperglycemia-monitor closely, check A1C level 6.7 -- good readings keep on SSI. - resuyme home Metformin on DC Mildly elevated liver enzymes-likely in the setting of hypoxia. trend, check hepatitis profile- pending . Mildy hypocalcemia-normal corrected value. vit d level normal. DVT ppx - on eliquis Cm consult for DC planning home today Progress Note: Quality VTE Deep Vein Thrombosis/Pulmonary Embolism Present on Admission: No _ (1) Atrial fibrillation Qualifiers: Atrial fibrillation type: (2) Respiratory failure Qualifiers: Chronicity: unspecified Respiratory failure complication: unspecified whether with hypoxia or hypercapnia Qualified Code(s): J96.90 - Respiratory failure, unspecified, unspecified whether with hypoxia or hypercapnia (3) Cardiomyopathy Qualifiers: Cardiomyopathy type:
[2018-06-15 14:59] VITALS: O2SAT 100
--- NOTE | 2018-06-15 15:12 | P.DCO ---
Diagnosis (1) Atrial fibrillation: Status: Acute (2) Cardiomyopathy: Status: Acute Physical Therapy Order: Evaluate and treat and Improve ambulation Home Health Nursing Order: Medical education, Signs/symptoms of disease process and Nursing assessment with vital signs Case Management Consult Case Management Consult-Home Health: Yes I have seen patient Lisa Vega on 06/15/18. My clinical findings support the need for the requested home health care services because: generalized deocnditoning I certify that my clinical findings support that this patient is homebound because: _ (1) Atrial fibrillation Qualifiers: Atrial fibrillation type: (2) Cardiomyopathy Qualifiers: Cardiomyopathy type:
[2018-06-15 17:06] VITALS: BP 104/69; PULSE 61; TEMP 97.6
== END 2018-06-15 17:41 | disposition home or self-care (01) | DRG 291 ==
LOC: NEPC 16:13 → NEDA 17:55 → HCPC 21:33 → N04 06-09 17:41
PROVIDERS: ADMIT Internal Medicine; ATTEND Internal Medicine
DX: Z79.84 Long term (current) use of oral hypoglycemic drugs; Z68.1 Body mass index [BMI] 19.9 or less, adult; E83.51 Hypocalcemia; J44.9 Chronic obstructive pulmonary disease, unspecified; J96.01 Acute respiratory failure with hypoxia; F20.9 Schizophrenia, unspecified; R78.81 Bacteremia; E87.6 Hypokalemia; E78.5 Hyperlipidemia, unspecified; I42.9 Cardiomyopathy, unspecified; I50.21 Acute systolic (congestive) heart failure; I48.91 Unspecified atrial fibrillation; I11.0 Hypertensive heart disease with heart failure; R74.8 Abnormal levels of other serum enzymes; F17.210 Nicotine dependence, cigarettes, uncomplicated; E11.65 Type 2 diabetes mellitus with hyperglycemia; H02.005 Unspecified entropion of left lower eyelid; R63.4 Abnormal weight loss; Z88.0 Allergy status to penicillin; I25.10 Atherosclerotic heart disease of native coronary artery without angina pectoris; I47.2 Ventricular tachycardia; Z82.49 Family history of ischemic heart disease and other diseases of the circulatory system; E78.00 Pure hypercholesterolemia, unspecified
CPT/HCPCS: 36600; 71010; 71045; 71275; 78452; 80048; 80053; 80061; 80202; 81001; 82306; 82550; 82552; 82565; 82805; 82948; 82962; 83036; 83520; 83605; 83735; 83880; 84132; 84145; 84484; 85025; 85610; 85730; 86403; 87040; 87077; 87086; 87149; 87186; 87205; 87275; 87276; 87804; 90765; 93005; 93017; 93306; 94002; 94003; 94618; 94620; 94640; 94656; 94657; 94664; 94665; 96365; 97110; 97116; 99291; A9502; J1644; J1940; J1956; J2060; J2785; J3370; J3480; J7040; J7050; Q9967